=== PATIENT | female | born 1995 | race Caucasian/White ===

== ENCOUNTER → 2023-01-31 13:07 | Outpatient (BNVA) | payer MEDICAID, SELFPAY | PROVIDERS: Visit Provider Physician Assistant ==

== ENCOUNTER 2025-01-06 14:26 | Outpatient (AMB) | payer OTHER, SELFPAY ==
[2025-01-06 14:28] VITALS: BP 118/60; PULSE 67; BMI 41.5
--- NOTE | 2025-01-06 14:28 | A.OFFVIS_ITS ---
Vital Signs 01/06/25 14:28 Height 5 ft 2 in Weight 227 lb 1.218 oz BMI 41.5 BP 118/60 Blood Pressure Location Lt brachial Position Sitting Pulse 67 Pulse Source Pulse Oximeter Intake Visit Reasons: Obesity Intake Note: Patient present today for Obesity. Spool Sorter Required: No Accompanied by: Self / Same As Patient Allergies acetaminophen [From Vicodin] Allergy (Mild, Verified 01/06/25 14:35) Seizure aripiprazole [From Abilify] Allergy (Mild, Verified 01/06/25 14:35) Fainting hydrocodone [From Vicodin] Allergy (Mild, Verified 01/06/25 14:35) Seizure methenamine Allergy (Mild, Verified 01/06/25 14:35) Hives oxycodone Allergy (Mild, Verified 01/06/25 14:35) Seizure Medication List - Last Reconciled 01/06/25 by Major Clay MD docusate sodium 50 mg PO DAILY hydromorphone (Dilaudid) 2 mg PO Q4-6H PRN magnesium 200 mg PO DAILY sennosides (senna) 8.6 mg PO DAILY HPI Comments Details: History of Present Illness The patient is a 29-year-old female presenting for an evaluation of obesity. She describes substantial weight gain several years prior. The patient has adhered to various diets, including the ketogenic diet, and consulted with a cash management associate. Although she initially lost weight, she has been unable to progress further over the last year and a half. Hypothyroidism was identified by her primary care provider, with Rickie's Thyroiditis as the underlying cause. Previously, she was on levothyroxine but discontinued it, which contributed to her current hypothyroid state. Occasionally, the patient snores but hasn't undergone evaluation for sleep apnea and denies Deanna?s syndrome symptoms. She also recently underwent surgery for cauda equina syndrome and has been relatively inactive Review of Systems - Sleep: Reports occasional snoring Physical Exam - Thyroid- Slightly enlarged, approximately 25 grams, smooth consistency, no nodules noted Results Plan The patient will begin treatment for hypothyroidism with levothyroxine 137 mcg daily. Thyroid function will be reevaluated through TSH and free T4 levels in six weeks. For obesity management, referral to a cash management associate is planned. The potential use of GLP-1 or GLP-1/GIP agonists is reserved for future consideration, contingent upon her response to current management strategies. Patient was informed and verbally consented to the use of an ambient scribe for clinic note documentation during this visit. Discussion Notes During the visit, I discussed with the patient her diagnosis of hypothyroidism and its connection to Rickie's Thyroiditis. I explained the role of the thyroid gland, the necessity of levothyroxine therapy, and outlined the timeframe for thyroid function reassessment, advising a follow-up in six weeks to review TSH and free T4 levels. The conversation included a discussion on obesity management. Currently, pharmacological weight loss options remain deferred in favor of continuing dietary consultation and lifestyle adjustments. Should progress stagnate again, I mentioned that GLP-1 or GLP-1/GIP agonists might be alternatives. She will follow-up with Meghana Gordon NP in 2 mos Patient Instructions - Begin taking levothyroxine 137 mcg daily for hypothyroidism. - Set up a follow-up appointment for thyroid function tests (TSH and free T4) in six weeks. - Consult with a cash management associate for continued dietary management. - Monitor weight loss progress and report any changes or concerns. [facility] Medical History (Updated 01/06/25 @ 14:57 by Major Clay MD) Hypothyroidism Obesity delivery delivered Surgical History H/O umbilical hernia repair History of lumbar laminectomy Family History Mother Thyroid ca Father Hyperthyroidism Cerebral palsy Skin cancer Social History Alcohol intake: current Alcohol intake frequency: a few times a month Physical Exam Vital Signs: Last Vital Signs Pulse 67 01/06/25 14:28 BP 118/60 01/06/25 14:28 BMI result Body Mass Index 41.5 Const Other: There were no cushingoid features. thyroid gland is normal size weighs about 15 g. . There are no thyroid nodules palpable Assessment & Plan Assessment & Plan (1) Obesity: Code(s): E66.9 - Obesity, unspecified Category: Medical Plan: see above (2) Hypothyroidism: Code(s): E03.9 - Hypothyroidism, unspecified Category: Medical Plan: see above Orders: Orders Thyroid Stimulating Hormone 6 Weeks E03.9 - Hypothyroidism, unspecified, E66.9 - Obesity, unspecified Free T4 (Free Thyroxine) 6 Weeks E03.9 - Hypothyroidism, unspecified, E66.9 - Obesity, unspecified Referrals Nutrition/Dietitian Referral E66.9 - Obesity, unspecified Medications: New levothyroxine 137 mcg PO DAILY 30 tabs 5RF Coding Level of Care Code New Pt Level 4 (75141) Diagnoses Obesity E66.9 Hypothyroidism E03.9
--- OUTSIDE RECORDS SUMMARY | 2025-01-06 17:50 | XMS_ITS | Data Portability ---
Author Organization [place] - [facility], [facility] Address [address] [place] [address] Care Team Providers Care Marketing Operations Intern Name Role Phone JOS RAYO Primary Care Provider Assessment Encounter Date Assessment Date Assessment LastModified by Organization Details LastModified Time 09/30/2015 09/30/2015 ? ? ?Reviewed causative agents, symptomatic relief reviewed, check vaginal AFFIRM, tx accordingly Check urine C&S, gen probe ? ? ?Rx for Mycolog II cream ERXed Delines other STD screen, and contraception: not sexually active tmachon Not available 09/30/2015 10:26:53 Plan of Treatment Reminders Order Date Submit Date Provider Last Modified By Organization Details Last Modified Time Details Appointments None recorded. Lab culture, urine 2014 015 CHRISTY Not available 5 13:26:13 urinalysis, complete 2014 015 CHRISTY Not available 5 13:26:13 bacterial vaginosis + vaginitis panel, vaginal 2014 015 CHRISTY In-Office Order, Internal Use Only DO Not Attach Compendium DO Not Attach Compendium, Do Not Delete/merge, [id number] 5 15:03:26 CT + NG DNA, PCR, unspecified specimen 2014 015 CHRISTY Not available 5 13:26:14 test, urine 2014 015 robson Mehta In-Office Order, Internal Use Only DO Not Attach Compendium DO Not Attach Compendium, Do Not Delete/merge, [id number] 5 16:37:24 bacterial vaginosis + vaginitis panel, vaginal 2014 015 CHRISTY Not available 22:41:29 Referral None recorded. Procedures None recorded. Surgeries None recorded. Imaging None recorded. Medication Orders nystatin-tr iamcinolone 100,000 unit/g-0.1 % topical cream 2014 015 cbinette [facility] - [address] [place] [address], [id number], 5 11:53:45 Depo-Button Riveter a 150 mg/mL intramuscul ar syringe 2014 015 cbinette Not available 5 10:07:11 Depo-Button Riveter a 150 mg/mL intramuscul ar syringe 2014 015 cbinette [facility] - [address] [place] [address], [id number], 5 10:07:11 Patient TargetsNo targets recorded. Patient Instructions Encounter Date Encounter Id Patient Instructions Last Modified By Organization Details Last Modified Time 04/15/2015 [id number] trichomoniasis: care instructions [id number] Not available 06/03/2015 04:27:47 Reason for Referral None Reported. Results Created Date Observation Date Name Description Value Unit Range Abnormal Flag Note LastModifiedBy Organization Detail LastModifiedTime 04/29/20 15 04/29/2015 pregn jean test, urine Result negati ve Not Available In-Office Order Internal Use Only DO Not Attach Compendium DO Not Attach Compendium, Do Not Delete/merge, [id number] 04/29/2015 13:27:34 04/15/20 15 04/17/2015 bacte rial vagin osis + vagin itis panel , vagin al trichomonas vaginalis DNA Negati ve negati ve Not Available [facility] [address], [place], [address], 04/17/2015 22:41:29 04/15/20 15 04/17/2015 bacte rial vagin osis + vagin itis panel , vagin al gardnerella vaginalis DNA Negati ve negati ve Not Available [facility] [address] [place], [address], 04/17/2015 22:41:29 04/15/20 15 04/17/2015 bacte rial vagin osis + vagin itis panel , vagin al makenna species DNA Negati ve negati ve Not Available [facility] [address] [place] [address], [id number], 04/17/2015 22:41:29 09/29/20 15 09/30/2015 beta- HCG, quant itati ve, serum or plasm a beta-HCG, quantitative <1 mIU/m L <5 Not Available [facility] [address] [place] [address], [id number], 09/30/2015 04:06:10 09/30/20 15 10/01/2015 urina lysis , compl ete color Yellow Not Available [facility] [address] [place] [address], [id number], 10/03/2015 13:26:12 09/30/20 15 10/01/2015 urina lysis , compl ete clarity Slight ly cloudy Not Available [facility] [address] [place] [address], [id number], 10/03/2015 13:26:12 09/30/20 15 10/01/2015 urina lysis , compl ete specific gravity 1.020 1.003- 1.030 Not Available [facility] [address] [place] [address], [id number], 10/03/2015 13:26:12 09/30/20 15 10/01/2015 urina lysis , compl ete pH 7.0 5.0-8. 0 Not Available [facility] [address] [place] [address], [id number], 10/03/2015 13:26:12 09/30/20 15 10/01/2015 urina lysis , compl ete leukocyte esterase Negati ve negati ve Not Available [facility] [address] [place], [address], 10/03/2015 13:26:12 09/30/20 15 10/01/2015 urina lysis , compl ete nitrite Negati ve negati ve Not Available [facility] [address] [place], [address], 10/03/2015 13:26:12 09/30/20 15 10/01/2015 urina lysis , compl ete protein Negati ve negati ve Not Available [facility] [address] [place], [address], 10/03/2015 13:26:12 09/30/20 15 10/01/2015 urina lysis , compl ete glucose 0 mg/dL 0-99 Not Available [facility] [address] [place], [address], 10/03/2015 13:26:12 09/30/20 15 10/01/2015 urina lysis , compl ete ketone Negati ve negati ve Not Available [facility] [address] [place], [address], 10/03/2015 13:26:12 09/30/20 15 10/01/2015 urina lysis , compl ete urobilinogen <2.0 mg/dL <2.0 Not Available [facility] [address] [place], [address], 10/03/2015 13:26:12 09/30/20 15 10/01/2015 urina lysis , compl ete bilirubin Negati ve negati ve Not Available [facility] [address] [place], [address], 10/03/2015 13:26:12 09/30/20 15 10/01/2015 urina lysis , compl ete hemoglobin Negati ve negati ve Not Available [facility] [address] [place], [address], 10/03/2015 13:26:12 09/30/20 15 10/01/2015 urina lysis , compl ete WBC 0 per_h pf 0-4 Not Available [facility] [address] [place], [address], 10/03/2015 13:26:12 09/30/20 15 10/01/2015 urina lysis , compl ete RBC 0 per_h pf 0-4 Not Available [facility] [address] [place] [address], [address], 10/03/2015 13:26:12 09/30/20 15 10/01/2015 urina lysis , compl ete amorphous crystals Presen t Not Available [facility] [address] [place], [address], 10/03/2015 13:26:12 09/30/20 15 10/02/2015 cultu re, urine source Clean catch Not Available [facility] [address] [place], [address], 10/03/2015 13:26:13 09/30/20 15 10/02/2015 cultu re, urine culture Steri le or less than 1000 col/m L. Not Available [facility] [address] [place] [address], [id number], 10/03/2015 13:26:13 09/30/20 15 10/02/2015 cultu re, urine status FINAL 10/02 Not Available [facility] [address] [place], [address], 10/03/2015 13:26:13 09/30/20 15 10/03/2015 CT + NG DNA, PCR, unspe cifie d speci men source urine Not Available [facility] [address] [place], [address], 10/03/2015 13:26:14 09/30/20 15 10/03/2015 CT + NG DNA, PCR, unspe cifie d speci men chlamydia by DNA Negati ve negati ve Not Available [facility] [address], [place], [address], 10/03/2015 13:26:14 09/30/20 15 10/03/2015 CT + NG DNA, PCR, unspe cifie d speci men GC by DNA Negati ve negati ve Not FDA appro cami for GC/Ch lamyd ia in SureP ath, recta l and throa t speci mens. Test valid ated by [facility] for detec ting GC/Ch lamyd ia from these [facility] es. Not Available [facility] [address], [place], [address], 10/03/2015 13:26:14 09/30/20 15 09/30/2015 bacte rial vagin osis + vagin itis panel , vagin al Results Positi ve Not Available In-Office Order Internal Use Only DO Not Attach Compendium DO Not Attach Compendium, Do Not Delete/merge, [id number] 09/30/2015 11:52:47 Result Notes None recorded. Problems Name Problem SNOMED Code Status Onset Date Resolution Date Notes Provider Name and Address Organization Details Recorded Time Hypothyroid ism 59929298 Completed 201106/20/2015 Damaris Shafer null, [facility] 5 14:33:51 Anemia 856878275 Completed 201106/20/2015 Damaris Medelme null, [facility] 5 14:33:51 Anxiety 04613015 Completed 06/20/2015 Damaris Bersadiame null, [facility] 5 14:33:51 Hypercholes terolemia 22274993 Completed 06/20/2015 Damaris Bersadiame null, [facility] 5 14:33:51 Migraine with aura 6008886 Completed 201406/20/2015 Damaris Medelme null, [facility] 5 14:33:51 Bradycardia 63638847 Completed 201206/20/2015 Damaris Shafer [facility], [facility] 5 14:33:51 Depressive disorder 98706880 Completed 201106/20/2015 Damaris Shafer [facility] 5 14:33:51 Infection by Trichomonas 83271820 Completed 06/20/2015 Damarisblaze Shafer [facility] 5 14:33:51 Pure hypercholes terolemia 282514968 Completed 201106/20/2015 Damariscortez Shafer [facility] 5 14:33:51 Anxiety state 561054304 Completed 201106/20/2015 Damariscortez Shafer [facility] 5 14:33:51 Amenorrhea 19871766 Active Leigh Meyers [facility] 5 09:33:55 Vaginitis and vulvovagini tis Active Ana María Gutierrez [facility] 5 11:53:45 Urinary tract infectious disease 53557342 Active Ana María Gutierrez [facility] 5 11:53:45 Problem Notes None recorded. Procedures Surgical History Date Name Laterality Status Provider Name and Address Organization Details Recorded Time 5 Date of Last Pap Smear completed Jos Casillas [facility] 06/07/2015 12:20:28 Imaging Results None recorded. Procedure Notes None recorded. Medical Equipment None Reported. Allergies Allergen ID Allergen Name Allergen Category Reaction Reaction Severity Criticality Documentation Date Start Date Code Code System Note Provider Name and Address Organization Details Recorded Time 042353 acetamino phen medicatio n Not available Not available Not available 04/13/[address] [facility], [facility] 5 11:28:01 163319 oxycodone medicatio n Not available Not available Not available 04/13/2015 7804 RxNorm Damaris Shafer null, [facility] 5 13:24:00 471302 hydrocodo ne Not available Not available Not available Not available 04/13/2015 5489 RxNorm Damaris urbano, [facility] 5 13:24:00 370878 hydrocodo ne bitartrat e medicatio n Not available Not available Not available 04/19/20152012 44886 9 RxNorm COMME NT: CAUSA TIVE AGENT : VICOD IN; Not Available Formerly [facility], [facility]–1983 5 09:47:23 233552 oxycodone hydrochlo ride medicatio n Not available Not available Not available 04/19/20152011 71476 RxNorm COMME NT: CAUSA TIVE AGENT : PERCO CET; Not Available [facility], [facility] 5 09:47:23 839199 acetamino phen medicatio n Not available Not available Not available 04/19/20152011 161 RxNorm COMME NT: CAUSA TIVE AGENT : PERCO CET; Not Available [facility], [facility] 5 09:47:23 Medications Name Sig Start Date Stop Date Status Note LastModified by Organization Details LastModified Time multivita min tablet TAKE 1 TABLET BY ORAL ROUTE EVERY DAY WITH FOOD 03/10 completed Not Available Not Available Not Available Cleocin 100 mg vaginal supposito ry Insert 1 supposit ory every day by vaginal route for 3 days. 2014 active Not Available Not Available Not Avai lable Vitamins B Complex capsule 11/12 completed PRESCRIB ED ELSEWHER E Not Available Not Available Not Available Microgest in FE 11/30 (28) 1 mg-20 mcg (21)/75 mg (7) tablet TAKE 1 TABLET BY ORAL ROUTE EVERY DAY 07/30 completed Not Available Not Available Not Available Flagyl 500 mg tablet TAKE 1 TABLET BY ORAL ROUTE EVERY 12 HOURS FOR 7 DAYS 03/21 completed Not Available Not Available Not Available Micronor (28) 0.35 mg tablet TAKE 1 TABLET BY ORAL ROUTE EVERY DAY 03/10 completed COMMENTS : GENERIC Not Available Not Available Not Available nystatin- triamcino lone 100,000 unit/g-0. 1 % topical cream APPLY TO THE AFFECTED AREA(S) BY TOPICAL ROUTE 2 TIMES PER DAY IN THEMORNI NG AND EVENING 2014 active Not Available Not Available Not Avai lable Tylenol 325 mg tablet TAKE 1 TABLET BY ORAL ROUTE EVERY 4 HOURS NEEDED 03/10 completed Not Available Not Available Not Available Prozac 10 mg capsule TAKE 2 CAPSULE BY ORAL ROUTE EVERY DAY 03/10 completed PRESCRIB ED ELSEWHER E Not Available Not Available Not Available Topamax 15 mg sprinkle capsule TAKE 1 CAPSULE BY ORAL ROUTE 2 TIMES EVERY DAY IN THE MORNING AND EVENING 03/10 completed PRESCRIB ED ELSEWHER E Not Available Not Available Not Available Depo-Prov era 150 mg/mL intramusc ular syringe Inject 1 mL every 3 months by intramus cular route. 2014 active Not Available Not Available Not Avai lable iron ER 325 mg (65 mg iron) capsule,e xtended release APPLY BY DENTAL ROUTE 03/10 completed PRESCRIB ED ELSEWHER E Not Available Not Available Not Available Vitamin D3 25 mcg (1,000 unit) capsule TAKE BY ORAL ROUTE 03/10 completed PRESCRIB ED ELSEWHER E Not Available Not Available Not Available Prozac active Not Available Not Availa ble Not Available Tylenol active Not Available Not Avail able Not Available Vitamin D3 active Not Available Not Available Not Available Zyrtec active Not Available Not Availa ble Not Available Topamax active Not Available Not Avail able Not Available multivita min active Not Available Not Available Not Available Ortho Micronor active Not Available Not Available Not Available Zantac 50 mg/2 mL (25 mg/mL) injection solution INFUSE BY INTRAVEN OUS ROUTE EVERY 8 HOURS OVER 03/10 completed PRESCRIB ED ELSEWHER E Not Available Not Available Not Available Zyrtec 10 mg capsule 03/10 completed PRESCRIB ED ELSEWHER E Not Available Not Available Not Available Sleep Caps 2.5 mg-252.5 mg capsule 09/16 completed PRESCRIB ED ELSEWHER E Not Available Not Available Not Available Vitals Date Recorded Body weight Systolic blood pressure Diastolic blood pressure Provider Name and Address Organization Details Last Updated DateTime 04/29/2015 338609.353 54 g 100 mm[Hg] 60 mm[Hg] Ana María Gutierrez [facility] 04/29/2015 13:19:46 Date Recorded Body weight Systolic blood pressure Diastolic blood pressure Provider Name and Address Organization Details Last Updated DateTime 09/30/2015 473124.837 47 g 114 mm[Hg] 68 mm[Hg] Ana María Gutierrez [facility] 09/30/2015 10:06:53 Date Recorded Body height Body mass index (BMI) Body weight Systolic blood pressure Diastolic blood pressure Provider Name and Address Organization Details Last Updated DateTime 04/15/2015 160.02 cm 42.9 kg/m2 725547.3 5354 g 110 mm[Hg] 74 mm[Hg] Jos Casillas [facility] 5 11:25:34 Social History Question Answer Notes LastModified by Organizat ion Details LastModified Time Tobacco Smoking Status Former Smoker Quit 2 months ago Jos Hanksham [facility], [facility] 04/15/2015 11:29:00 How Much Tobacco Do You Smoke? No cbinette Information not available 09/30/2015 How Many Years Have You Smoked Tobacco? 0 Information not available 04/13/2015 Sex: Unknown Functional Status Question Answer Note LastModified by Organization D etails LastModified Time What is your exercise level? Heavy DAILY Information not available 04/13/2015 Mental Status None recorded. Family History Relationship Description Onset Age of this Age Resolved Age Notes LastModified by Organization Details LastModified Time Brother Cerebrovascu lar accident cbinette Not available 10:08:24 Father Hypertensive disorder Hypoth yroid, DM cbinette Not available 09/30/2015 10:08:24 Maternal Grandfather Malignant tumor of esophagus MGGF cbinette Not available 2014 10:08:24 Maternal Grandmother Malignant tumor of breast MGGM cbinette Not available 2014 10:08:24 Mother Irritable bowel syndrome HTN, bicorn uate uterus cbinette Not available 09/30/2015 10:08:24 Notes:CAD in both sides of f amily Medical History Condition Response Other N Breast Cancer N Blood clots N Benign breast disease N Colon cancer N Lung Disease N Depression N Defects or Inherited Disease N Anesthesia Complications N Headaches/Migraines N Anxiety Disorder N Arthritis N HSV N Infertility N Interstitial Cystitis N Acid Reflux (GERD) N Cancer N Stroke N Endometriosis N Fibromyalgia N Spina Bifida N HIV N Heart Problems N Sexual Dysfunction N Autoimmune disorder N Kidney or Bladder Problems N Thyroid Problems N GI Problems N Eating Disorder N Anemia N Multiple Sclerosis N Psychiatric Illness N Ovarian Cancer N Diabetes N Blood Transfusions N Bladder disease N Abnormal Uterine Bleeding N Hyperlipidemia N BrCa positive N Diverticulitis N Abuse/Domestic Violence N Asthma N Hepatitis N Hypertension N Osteoporosis N Thrombophilias N Gynecological History Statement/Question Response Have you ever used control pills? Y Date of Last Pap Smear 03/10/2015 Current Control Method None What type of control pills? Angela Sexually Active? N Obstetrics History GPAL:G 0 P 0 0 0 0 Past Encounters Encounter ID Performer Location Encounter Start Date Encounter Closed Date Diagnosis/Indication Diagnosis SNOMED-CT Code Diagnosis ICD10 Code Diagnosis Note [id number] [facility] [address] [place] [address] 04/15/2015 11:13:05 04/18/2015 09:17:09 Venereal disease screening 754865220 KIZZY done today for trichomona s. Reviewed safe sex practices. Infection by Trichomonas 12635681 see above Contracept ion care management 236050015 Patient counseled at time of annual regarding contracept ion options, wishes to restart DMPA. Risks vs benefits and side effects reviewed. Advised to supplement with calcium. One year erxd to pharmacy. Patient to call for injection with menses. [id number] [facility] [address] [place] [address] 11/12/2012 00:00:00 [id number] [facility] [address] [place] [address] 02/04/2013 00:00:00 [id number] [id number] [address] [place] [address] 05/05/2013 00:00:00 [id number] [facility] [address] [place] [address] 09/16/2013 00:00:00 [id number] [facility] [address] [place] [address] 03/10/2015 00:00:00 [id number] [facility] [address] [place] [address] 04/29/2015 13:04:43 05/02/2015 13:18:01 Family planning surveillance [id number] Cesia Shafer [address] [facility] [place] [address] 06/24/2015 11:12:18 06/24/2015 11:16:52 [id number] SCOTT WEEMS MD [facility] [address] [place] [address] 09/30/2015 10:00:47 10/03/2015 09:27:28 Vaginitis and vulvovaginitis 084783419 N76.0 Urinary tr act infectious disease 06062157 N39.0 Health Concerns Section Related Observation LastModified by Organization Detai ls LastModified Time None Recorded Concern Status LastModified by Organization Details LastModified Time None Recorded Advance Directives Directive None Recorded Payers Encounter Date Sequence Insurance Name Policy Number Policy Melton Covered Member ID Melton Member ID Guarantor Name 04/15/2015 1 [employer]: [employer] WORK[employer] WELFARE FUND - PERSONAL CHOICE (PPO) [id number] 04/29/2015 1 [employer]: [employer] - [employer] WELF[employer] FUND - PERSONAL CHOICE (PPO) [id number] [id number] [facility] 06/24/2015 1 [employer]: [employer] - [employer] WELF[employer] FUND - PERSONAL CHOICE (PPO) [id number] [id number] [facility] 09/30/2015 1 [employer]: [employer] - [employer] WELF[employer] FUND - PERSONAL CHOICE (PPO) [id number] [id number] [facility] OBGyn Episode No OBEpisode recorded.
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
--- OUTSIDE RECORDS SUMMARY | 2025-01-06 17:50 | XMS_ITS | Data Portability ---
Author Organization [facility], [facility] (Prof.) Address [address], [address] [place] [address] Assessment No assessment recorded. Plan of Treatment Reminders Order Date Submit Date Provider Last Modified By Organization Details Last Modified Time Details Appointments None record ed. Lab None record ed. Referral None record ed. Procedures None record ed. Surgeries None record ed. Imaging None record ed. Medication Orders None record ed. Patient TargetsNo targets recorded. Patient InstructionsNo instructions recorded. Reason for Referral None Reported. Medical Equipment None Reported. Medications Name Sig Start Date Stop Date Status Note LastModified by Organization Details LastModified Time ondansetron HCl 4 mg tablet active Not Available Not Available Not Available acetaminophen 300 mg-codeine 30 mg tablet active Not Available Not Available Not Available terconazole 80 mg vaginal suppository active Not Available Not Available Not Available amoxicillin 875 mg tablet active Not Available Not Available No t Available metoclopramide 5 mg tablet active Not Available Not Available No t Available ranitidine 150 mg tablet active Not Available Not Available No t Available clotrimazole-bet amethasone 1 %-0.05 % topical cream active Not Available Not Available Not Available Vitals None Recorded Social History None recorded. Functional Status None recorded. Mental Status None recorded. Family History Nothing Reported. Medical History No medical history recorded. Gynecological HistoryNo gynecological history recorded. Obstetrics History GPAL:G 0 P 0 0 0 0 Past Encounters Encounter ID Performer Location Encounter Start Date Encounter Closed Date Diagnosis/Indication Diagnosis SNOMED-CT Code Diagnosis ICD10 Code Diagnosis Note [id number] [place] [address] 11/27/2017 14:25:52 11/27/2017 14:26:06 Health Concerns Section Related Observation LastModified by Organization Detai ls LastModified Time None Recorded Concern Status LastModified by Organization Details LastModified Time None Recorded Advance Directives Directive None Recorded Payers Encounter Date Sequence Insurance Name Policy Number Policy Melton Covered Member ID Melton Member ID Guarantor Name 11/27/2017 1 [facility] PLAN (MEDICAID HMO) [id number] Shirley Roldan [id number] Shirley Roldan OBGyn Episode No OBEpisode recorded.
--- OUTSIDE RECORDS SUMMARY | 2025-01-06 17:50 | XMS_ITS | Clinical Summary ---
Author Organization [facility] '[facility] Address [address] [place] [id number] Care Team Providers Care Product Safety Associate Name Role Phone Unavailable Primary Care Provider Unavailabl e Source Comments Please note that some or all of the patient's information could have additional privacy protections. State laws allow health care providers to render certain types of treatment to minors without parental consent. Please do not assume that this information can be shared solely by obtaining just the consent of the patient's parent/guardian. Please determine if all or part of the patient's care was rendered without parent/guardian involvement. And, if so, obtain the minor's consent prior to disclosure.[facility] Social History Tobacco Use Types Packs/Day Years Used Date Smoking Tobacco: Never Assessed Comments Unknown Sex and Gender Information Value Date Recorded Sex Assigned at Not on file Legal Sex Female 2:22 AM EST Gender Identity Not on file Sexual Orientation Not on file Plan of Treatment Not on file
--- OUTSIDE RECORDS SUMMARY | 2025-01-06 17:50 | XMS_ITS | Clinical Summary ---
Author Organization [facility] [facility] [employer] Address [address] [place] [address] Care Team Providers Care Cook Boat Name Role Phone Unavailable Primary Care Provider Unavailabl e Allergies Active Allergy Reactions Criticality Noted Date Comments Oxycodone-Acetaminophen 08/20/2023 Medications No known medications Social History Tobacco Use Types Packs/Day Years Used Date Smoking Tobacco: Never Assessed Tobacco Cessation:Counseling Given: Not Answered Comments Unknown Sex and Gender Information Value Date Recorded Sex Assigned at Female 08/20/2023 10:42 AM EDT Legal Sex Female 10:34 AM EDT Gender Identity Female 08/20/2023 10:42 AM EDT Sexual Orientation Choose not to disclose 2022 10:42 AM EDT Plan of Treatment Health Maintenance Due Date Last Done Comments Dental Oral Exam 1993 Dental Prophylaxis 1993 Dental X-Ray: Bitewings 1993 Dental X-Ray: Full Mouth 1993 Depression Screening 1993 HIV Screening 1993 SDOH Screening 1993 Alcohol/Substance Use Screening 2005 Tobacco Screening 2005 Family Planning (PISQ) 2008 Hepatitis C Screening 2011 Hepatitis B Vaccines (1 of 3 - 19+ 3-dose series) 2012 Pap Smear 2014 Cervical Cancer Screening 2023 HPV/Cotest 2023 COVID-19 Vaccine (4 - 2023-2 5 season) 2024 01/03/2022, 07/18/2021, 06/21/2021 Influenza Vaccine (#1) 2024 08/20/2019 DTaP/Tdap/Td Vaccines (2 - T d or Tdap) 11/06/2027 11/06/2017 Zoster Vaccines (1 of 2) 2043 RSV Patients and Patients Aged 60 years or older (1 - 1-dose 75+ series) 2068 HIB Vaccines Aged Out No longer eligi ble based on patient's age to complete this topic HPV Vaccines Aged Out No longer eligi ble based on patient's age to complete this topic Hepatitis A Vaccines Aged Out No long er eligible based on patient's age to complete this topic IPV Vaccines Aged Out No longer eligi ble based on patient's age to complete this topic Meningococcal Vaccine Aged Out No amelie billy eligible based on patient's age to complete this topic Pneumococcal Vaccine: Pediatrics (0 to 5 Years) and At-Risk Patients (6 to 49) Years) Aged Out No longer eligible b ased on patient's age to complete this topic RSV under 20 months Aged Out No longe r eligible based on patient's age to complete this topic Rotavirus Vaccines Aged Out No longer eligible based on patient's age to complete this topic Insurance [facility] MEDICAID STAND ADULT
--- OUTSIDE RECORDS SUMMARY | 2025-01-06 17:50 | XMS_ITS | Clinical Summary ---
Author Organization [address] [facility] Address [address] [place] [address] Phone Care Team Providers Care Seam Rubbing Machine Operator Name Role Phone Darrin Nelson MD Primary Care Provider [phone] Allergies Active Allergy Reactions Criticality Noted Date Comments Acetaminophen Unknown 04/10/2012 acetaminophen Aripiprazole 02/01/2017 Passed out and had a seizure Hydrocodone Unknown 09/16/2013 hydrocodone bitartrate Hydrocodone-Acetaminophen 02/01/2017 Passed out and had a seizure Methenamine Hives Low 09/16/2024 Oxycodone Unknown High 04/10/2012 oxycodone hydrochloride Oxycodone-Acetaminophen Other 02/01/2017 Passed out and had a seizure Tramadol 06/26/2024 Medications NIFEdipine, bulk, powder Place 1 Units around the anus 3 times daily for 56 days. Nifedipine 0.2% ointment. Apply a pea-size amount to the anal verge TID for 8 weeks. 4 Active senna (SENOKOT) 8.6 mg tablet Take by mouth. A ctive acetaminophen (TYLENOL) 500 mg tablet Take 1 tablet (500 mg total) by mouth every 6 (six) hours if needed. Active tamsulosin (FLOMAX) 0.4 mg 24 hr capsule Take 1 Capsule by mouth daily. Take 30 mins after same meal every day. Active senna-docusate (PERICOLACE) 8.6-50 mg per tablet Take 1 tablet by mouth 1 (one) time each day. 30 each 11 5 01/16/20 26 Active docusate sodium (COLACE) 100 mg capsule Take 1 capsule (100 mg total) by mouth. 4 Active multivitamin with minerals tablet Take 1 tablet by mouth 1 (one) time each day. Active cranberry fruit (cranberry) 450 mg tablet Take by mouth. Activ e lactobacillus acidoph-l.bulga r 100 million cell granules in packet Take 1 packet by mouth. 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 Overview (09/17/2024): 05/31 - pt reports hx of this - 04/23/17 TSH 0.55 - Plan for repeat TSH with 28wk labs Lab test positive for detection of COVID-19 viru s 11/24/2020 Overview (09/17/2024): Had covid pos last yr, cleared by cdc to return to work Marijuana use 10/14/2017 Overview (09/17/2024): Positive 10/09/17 Encounters Date Type Department Care Team Description 01/04/2025 11:30 AM EST Office Visit General Surgery - [address] [place] [id number] Ed Yadav MD Anal fissure (Primary Dx) 12/17/2024 Telephone Internal Medicine - [address] [place] [address] Chino Wallace MA Results 11/26/2024 11:15 AM EST Office Visit Internal Medicine - [address] [place] [address] Darrin Nelson MD Adult general medical examination (Primary Dx); Obesity with body mass index (BMI) in 95th percentile to less than 120% of 95th percentile for age in pediatric patient, unspecified obesity type, unspecified whether serious comorbidity present; Chronic idiopathic constipation; Rickie's disease from Last 3 Months Immunizations Name Administration Dates Next Due Influenza Quadravalent, MDCK , 0.5ml, preservative free (Flucelvax) 6mo and older 08/28/2017 Tdap Tetanus diptheria acell ular pertussis (Boostrix; Adacel) 7yo and older 11/06/2017 Surgical History Surgery Date Site/Laterality Comments HERNIA REPAIR PROCEDURE: HISTORICAL HERNIA REPAIR/ING; COMMENT: age 16 WRIST SURGERY Left PROCEDURE: HISTORICAL WRIST SURGERY; COMMENT: age 11 Medical History Medical History Date Comments Depression DX:Depression Anemia DX:Anemia Rickie's disease DX:Rickie 's disease; COMMENT: pt reports hx of this Family History Medical History Relation Name Comments Diabetes Father Breast cancer Neg Hx Cancer of Small Bowel Neg Hx Colon cancer Neg Hx Kidney cancer Neg Hx Ovarian cancer Neg Hx Pancreatic cancer Neg Hx Uterine cancer Neg Hx Relation Name Status Comments Brother Alive Father Alive Maternal Grandfather Maternal Grandmother Alive Mother Alive Paternal Grandfather Paternal Grandmother Social History Tobacco Use Types Packs/Day Years Used Date Smoking Tobacco: Every Day Smokeless Tobacco: Never Alcohol Use Standard Drinks/Week Comments Yes 0 (1 standard drink = 0.6 oz pur e alcohol) Comments Unknown Sex and Gender Information Value Date Recorded Sex Assigned at Not on file Legal Sex Female 6:57 PM EST Gender Identity Not on file Sexual Orientation Not on file Obstetrics History Last Filed Vital Signs Vital Sign Reading Time Taken Comments Blood Pressure 110/70 01/04/2025 11:41 AM EST Pulse 73 01/04/2025 11:41 AM EST Temperature 37 ??C (98.6 ??F) 11/26/2024 11:20 AM EST Respiratory Rate - - Oxygen Saturation 99% 11/26/2024 11:20 AM EST Inhaled Oxygen Concentration - - Weight 102 kg (224 lb 6.4 oz) 01/04/2025 11:41 A M EST Height 157.5 cm (5' 2 ) 01/04/2025 11:41 AM EST Body Mass Index 41.04 01/04/2025 11:41 AM EST Plan of Treatment Health Maintenance Due Date Last Done Comments Hepatitis B Vaccines (1 of 3 - 19+ 3-dose series) 2012 Pneumococcal Vaccine: Pediatrics (0 to 5 Years) and At-Risk Patients (6 to 64 Years) (1 of 2 - PCV) 2012 Depression Screening 10/20/2022 Social Influencers of Health Screening 10/20/2022 COVID-19 Vaccine (2023-2 5 season) 2024 01/03/2022, 07/18/2021, 06/21/2021 Influenza Vaccine (#1) 2024 9, 08/28/2017 DTaP,Tdap,and Td Vaccines (2 - Td or Tdap) 11/06/2027 11/06/2017 Cervical Cancer Screening: HPV 12/06/2028 12/06/2023 Cholesterol Screening (Lipid Panel) 12/15/2029 12/15/2024 HIV Screening Completed 02/28/2024 Hepatitis C Screening Completed 02/28/2024 HIB Vaccines Aged Out No longer eligi [...] on patient's age to complete this topic MMR Vaccines Aged Out No longer eligi ble based on patient's age to complete this topic Meningococcal ACWY Vaccine Aged Out N o longer eligible based on patient's age to complete this topic Meningococcal B Vacine Aged Out No lo nger eligible based on patient's age to complete this topic RSV Immunization Patients Under 20 months Aged Out No longer eligible b ased on patient's age to complete this topic Varicella Vaccines Aged Out No longer eligible based on patient's age to complete this topic Procedures Procedure Name Priority Date/Time Associated Diagnosis Comments CBC WITH AUTO DIFFERENTIAL Routine 12/15/2024 10:10 AM EST Acute cystitis without hematuria Hives THYROID STIMULATING HORMONE Routine 12/15/2024 10:10 AM EST Acute cystitis without hematuria Hives LIPID PANEL WITH REFLEX TO DIRECT LDL Routine 12/15/2024 10:10 AM EST Acute cystitis without hematuria Hives COMPREHENSIVE METABOLIC PANEL Routine 12/15/2024 10:10 AM EST Acute cystitis without hematuria Hives CBC AND DIFFERENTIAL Routine 12/15/2024 10:10 AM EST Acute cystitis without hematuria Hives HM HEPATITIS C SCREENING Routine 02/28/2024 HIV SCREENING Routine 02/28/2024 HPV Routine 12/06/2023 from Last 3 Months or Most Recently Relevant to Health Maintenance Results * (ABNORMAL) Lipid panel with reflex to direct LDL (12/15/2024 10:10 AM EST) Cholesterol 187 0 - 200 mg/dL LAB CHEMISTRY METHOD 12/15/2024 1:20 PM EST [facility] Triglycerides 44 0 - 150 mg/dL LAB CHEMISTRY METHOD 12/15/2024 1:20 PM EST [facility] HDL 71 >=40 mg/dL LAB CHEMISTRY METHOD 12/15/2024 1:20 PM EST [facility] LDL Calculated 107(H) 0 - 100 mg/dL LAB CHEMISTRY METHOD 12/15/2024 1:20 PM EST [facility] VLDL Cholesterol Len 8.8 mg/dL LAB CHEMISTRY METHOD 12/15/2024 1:20 PM EST [facility] Non HDL Chol. (LDL+VLDL) 116 <145 mg/dL LAB CHEMISTRY METHOD 12/15/2024 1:20 PM EST [facility] Chol/HDL Ratio 2.6 0.0 - 4.4 LAB CHEMISTRY METHOD 12/15/2024 1:20 PM EST [facility] Blood Venous blood specimen / Unknown Venipuncture / Unknown 12/15/2024 10:10 AM EST 12/15/2024 10:10 AM EST us Darrin Nelson MD LAB BLOOD ORDERABLES Final Resul t [facility] [address] [place] [address], [place] [phone] * CBC auto differential (12/15/2024 10:10 AM EST) WBC 8.3 4.8 - 10.8 K/mcL LAB HEMETOLOGY METHOD 12/15/2024 12:25 PM [facility] RBC 4.10 3.80 - 4.80 M/mcL LAB HEMETOLOGY METHOD 12/15/2024 12:25 PM [facility] Hemoglobin 12.4 11.5 - 16.0 g/dL LAB HEMETOLOGY METHOD 12/15/2024 12:25 PM [facility] Hematocrit 38.0 35.0 - 47.0 % LAB HEMETOLOGY METHOD 12/15/2024 12:25 PM [facility] MCV 92.9 79.0 - 98.0 FL LAB HEMETOLOGY METHOD 12/15/2024 12:25 PM [facility] MCH 30.3 27.0 - 32.0 pcg LAB HEMETOLOGY METHOD 12/15/2024 12:25 PM [facility] MCHC 32.6 32.0 - 37.0 g/dL LAB HEMETOLOGY METHOD 12/15/2024 12:25 PM [facility] RDW 13.2 11.0 - 15.0 % LAB HEMETOLOGY METHOD 12/15/2024 12:25 PM [facility] Platelets 251 130 - 400 K/mcL LAB HEMETOLOGY METHOD 12/15/2024 12:25 PM [facility] MPV 10.6 7.0 - 11.0 FL LAB HEMETOLOGY METHOD 12/15/2024 12:25 PM [facility] NRBC 0.0 <1.0 % LAB HEMETOLOGY METHOD 12/15/2024 12:25 PM [facility] NRBC Absolute 0.00 <0.10 K/mcL LAB HEMETOLOGY METHOD 12/15/2024 12:25 PM [facility] Neutrophils Relative 72.0 % LAB HEMETOLOGY METHOD 12/15/2024 12:25 PM [facility] Lymphocytes Relative 20.9 % LAB HEMETOLOGY METHOD 12/15/2024 12:25 PM [facility] Monocytes Relative 5.6 % LAB HEMETOLOGY METHOD 12/15/2024 12:25 PM [facility] Eosinophils Relative 0.7 % LAB HEMETOLOGY METHOD 12/15/2024 12:25 PM [facility] Basophils Relative 0.4 % LAB HEMETOLOGY METHOD 12/15/2024 12:25 PM [facility] Immature Granulocytes Relative 0.4 % LAB HEMETOLOGY METHOD 12/15/2024 12:25 PM [facility] Neutrophils Absolute 5.95 1.50 - 7.00 K/mcL LAB HEMETOLOGY METHOD 12/15/2024 12:25 PM [facility] Lymphocytes Absolute 1.73 1.00 - 5.00 K/mcL LAB HEMETOLOGY METHOD 12/15/2024 12:25 PM [facility] Monocytes Absolute 0.46 0.20 - 1.00 K/mcL LAB HEMETOLOGY METHOD 12/15/2024 12:25 PM [facility] Eosinophils Absolute 0.06 0.00 - 0.50 K/mcL LAB HEMETOLOGY METHOD 12/15/2024 12:25 PM [facility] Basophils Absolute 0.03 0.00 - 0.20 K/mcL LAB HEMETOLOGY METHOD 12/15/2024 12:25 PM [facility] Immature Granulocytes Absolute 0.03 0.00 - 0.03 K/mcL LAB HEMETOLOGY METHOD 12/15/2024 12:25 PM [facility] Blood Venous blood specimen / Unknown Venipuncture / Unknown 12/15/2024 10:10 AM EST 12/15/2024 10:10 AM EST Darrin Nelson MD LAB BLOOD ORDERABLES Final Resul t Performing Organization Address City/[facility]/ZIP Co de Phone Number [facility] [address] [place] [address], [place] [phone] * (ABNORMAL) Thyroid stimulating hormone (12/15/2024 10:10 AM EST) TSH 41.29(H) 0.40 - 4.00 mcIU/mL LAB CHEMISTRY METHOD 12/15/2024 1:11 PM [facility] Blood Venous blood specimen / Unknown Venipuncture / Unknown 12/15/2024 10:10 AM EST 12/15/2024 10:10 AM EST Darrin Nelson MD LAB BLOOD ORDERABLES Final Resul t Performing Organization Address [facility]/ZIP Co de Phone Number [facility] [address] [place] [address], [place] [phone] * (ABNORMAL) Comprehensive metabolic panel (12/15/2024 10:10 AM EST) Sodium 139 133 - 145 mmol/L LAB CHEMISTRY METHOD 12/15/2024 1:14 PM [facility] Potassium 4.1 3.5 - 5.5 mmol/L LAB CHEMISTRY METHOD 12/15/2024 1:14 PM [facility] Chloride 107 96 - 110 mmol/L LAB CHEMISTRY METHOD 12/15/2024 1:14 PM [facility] CO2 28 21 - 32 mmol/L LAB CHEMISTRY METHOD 12/15/2024 1:14 PM [facility] Anion Gap 4 3 - 11 LAB CHEMISTRY METHOD 12/15/2024 1:14 PM [facility] Glucose 84 70 - 100 mg/dL LAB CHEMISTRY METHOD 12/15/2024 1:14 PM [facility] BUN 15 5 - 25 mg/dL LAB CHEMISTRY METHOD 12/15/2024 1:14 PM [facility] Creatinine 0.65 0.50 - 1.10 mg/dL LAB CHEMISTRY METHOD 12/15/2024 1:14 PM [facility] eGFR 121 >=60 mL/min/1. 73m2 LAB CHEMISTRY METHOD 12/15/2024 1:14 PM [facility] Comment:Calculation based on the??Chronic Kidney Disease Epidemiology Collaboration (CKD-EPI) equation refit??without adjustment for race. BUN/Creatinine Ratio 23.1 LAB CHEMISTRY METHOD 12/15/2024 1:14 PM [facility] Calcium 8.8 8.5 - 10.5 mg/dL LAB CHEMISTRY METHOD 12/15/2024 1:14 PM [facility] AST (SGOT) 22 10 - 42 unit/L LAB CHEMISTRY METHOD 12/15/2024 1:14 PM [facility] ALT (SGPT) 30 10 - 60 unit/L LAB CHEMISTRY METHOD 12/15/2024 1:14 PM [facility] Alkaline Phosphatase 37(L) 42 - 121 unit/L LAB CHEMISTRY METHOD 12/15/2024 1:14 PM [facility] Total Protein 6.9 6.0 - 8.0 g/dL LAB CHEMISTRY METHOD 12/15/2024 1:14 PM [facility] Albumin 3.9 3.2 - 5.0 g/dL LAB CHEMISTRY METHOD 12/15/2024 1:14 PM [facility] Total Bilirubin 0.4 0.0 - 1.4 mg/dL LAB CHEMISTRY METHOD 12/15/2024 1:14 PM [facility] Blood Venous blood specimen / Unknown Venipuncture / Unknown 12/15/2024 10:10 AM EST 12/15/2024 10:10 AM EST us Darrin Nelson MD LAB BLOOD ORDERABLES Final Resul t [facility] [address] [place] [address], * HIV Screening (02/28/2024) HIV Screening abstracted Historical Provider HEALTH MAINTENANCE Final Result * Hepatitis C Screening (02/28/2024) Hepatitis C Screening abstracted Historical Provider HEALTH MAINTENANCE Final Result * Cervical Cancer Screening: HPV (12/06/2023) Cervical Cancer Screening: HPV negative, abstracted Historical Provider HEALTH MAINTENANCE Final Result from Last 3 Months or Most Recently Relevant to Health Maintenance Insurance [facility] Care Teams Seam Rubbing Machine Operator Relationship Specialty Start Date End Date Darrin Nelson MD [address] [address] PCP - General 05/27/24
--- OUTSIDE RECORDS SUMMARY | 2025-01-06 17:50 | XMS_ITS | Encounter Summary ---
Author Organization [facility] Address [address] [place] [address] Care Team Providers Care Extracorporeal Circulation Specialist Name Role Phone Darrin Nelson MD Primary Care Provider [phone] Reason for Visit * Reason Onset Date Comments Results 12/17/2024 Encounter Details Date Type Department Care Team ([facility] Contact Info) Description 12/17/2024 Telephone Internal Medicine - [place] [address] [facility] [address] [place] [address] Chino Wallace MA Results Social History Tobacco Use Types Packs/Day Years [...] on file documented as of this encounter Progress Notes * Chino Wallace MA - 12/29/2024 11:39 AM EST Pt aware. * hCino Wallace MA - 12/29/2024 11:39 AM EST ----- Message from Jn Nelson MD sent at 12/15/2024 4:29 PM EST ----- Thyroid is on the low side need to follow-up with endocrine referral has been placed other labs arestable for age. * Chino Wallace MA - 12/17/2024 12:16 PM EST Called, sent me directly to . not set up. Unable to lvm. * Chino Wallace MA - 12/17/2024 12:15 PM EST ----- Message from Jn Nelson MD sent at 12/15/2024 4:29 PM EST ----- Thyroid is on the low side need to follow-up with endocrine referral has been placed other labs arestable for age. documented in this encounter Plan of Treatment Not on file documented as of this encounter Visit Diagnoses Not on filedocumented in this encounter Care Teams Extracorporeal Circulation Specialist Relationship Specialty Start Date End Date Darrin Nelson MD [address] [place] [address] [address] [place] [address] PCP - General 05/27/24 documented as of this encounter
== END 2025-01-06 15:05 | disposition home or self-care (01) ==
PROVIDERS: PCP Internal Medicine; Visit Provider Internal Medicine Endocrinology, Diabetes & Metabolism
DX: E66.9 Obesity, unspecified (principal); E03.9 Hypothyroidism, unspecified
CPT/HCPCS: 99204

== ENCOUNTER → 2025-01-06 14:26 | Outpatient (BNVA) | payer OTHER, SELFPAY | PROVIDERS: PCP Internal Medicine; Visit Provider Internal Medicine Endocrinology, Diabetes & Metabolism | DX: E66.9 Obesity, unspecified (principal); Z68.41 Body mass index [BMI] 40.0-44.9, adult; E03.9 Hypothyroidism, unspecified | CPT/HCPCS: 99202 ==

== ENCOUNTER 2025-01-25 13:04 | Outpatient (AMB) | payer OTHER, SELFPAY ==
--- NOTE | 2025-01-25 13:14 | A.OFFVIS_ITS ---
VS Expanded 01/25/25 13:16 Height 5 ft 2 in Weight 223 lb 12.307 oz BMI 40.9 Intake Visit Reasons: obesity Allergies acetaminophen [From Vicodin] Allergy (Mild, Verified 01/06/25 14:35) Seizure aripiprazole [From Abilify] Allergy (Mild, Verified 01/06/25 14:35) Fainting hydrocodone [From Vicodin] Allergy (Mild, Verified 01/06/25 14:35) Seizure methenamine Allergy (Mild, Verified 01/06/25 14:35) Hives oxycodone Allergy (Mild, Verified 01/06/25 14:35) Seizure Nutrition Presentation Details: Pt presents for MNT obesity Pt reports physical activity ahs lessened since May 2023 due to surgery related to cauda equina syndrome Typical meal intake: fruits/d 1/d milk: cheese 1/d, greens: 1/day fish: 1x/wk tries to have preportioned meals and frozen meals , reading food labels water: 16 oz/d takes iron supplement Pt reports weight hx, 400 lbs in 20's (gained 190lb during ) 190 lbs gained with daughter Typical meal intake b: protein shake (espresso shot) hard boiled egg or beef stick or wake up wraps L: tuna sand (divides 1 sand for lunch and snack), water Dinner taco salad/ground beef, water snack on dried meat n/v: denies BS Monitoring Most Recent Diabetes Results: No Data to Display VSO-Qzwkelx-Rl.Jeor Equation Height: 5 ft 2 in Weight: 224 lb Resting Metabolic Rate: 1685.76 Calculated Activity Level: Mild Activity Calories Needed to Maintain Weight: 2317.92 [facility] Medical History (Updated 01/06/25 @ 14:57 by Major Clay MD) Hypothyroidism Obesity delivery delivered Surgical History H/O umbilical hernia repair History of lumbar laminectomy Family History Mother Thyroid ca Father Hyperthyroidism Cerebral palsy Skin cancer Social History Alcohol intake: current Alcohol intake frequency: a few times a month Assessment & Plan Assessment & Plan (1) Obesity: Code(s): E66.9 - Obesity, unspecified Category: Medical Plan: Wt: 102 Kg ( 02/02 ) Est kcal needs as per MSJ: 2000 (40% carb, 30% protein/fat) Est fluid needs as per 25-30 ml/d: 3100 Est prot per day as per 1-1.2 g/kg bw: 122 Recommend fiber intake : 8-10 g per day and gradually increase to 25-28 g per day for women and 35-38 g for men or as tolerated Recommend sodium intake per day : less than 1500 mg less than 2000 mg Educated patient on: ( R = reviewed V = verbalizes understanding N/R = needs review N/A = not applicable * Food sources of carbohydrate, adequate serving sizes and its role in various health conditions: R V N/R * Differences between complex carbohydrates a simple carbohydrates, role of fiber in diet: R * Lean protein sources of foods: R V NR * Differences between types of fats and role in diet (mono on saturated fat fatty acids, saturated fatty acids, trans fats): R * Food sources of sodium in salt and healthy modifications for heart health in kidney health: R V R/V * Vitamins and minerals: R V N/R * Healthy plate method concept: R * Physical activity: Benefits a precaution: R * Patient Instructions: Include foods with Calcium, 1300mg/d see list of food options, including non dairy food items Coding Level of Care Code Nutr Indiv Intake (08654) Diagnoses Obesity E66.9 Time Spent (min) 30
[2025-01-25 13:16] VITALS: BMI 40.9
[2025-02-02 13:23] VITALS: BMI 41.0
== END 2025-01-25 13:53 | disposition home or self-care (01) ==
LOC: HO.ENCR 13:04
PROVIDERS: PCP Internal Medicine; Visit Provider Dietitian, Registered
DX: E66.9 Obesity, unspecified (principal)

== ENCOUNTER → 2025-01-25 13:04 | Outpatient (BNVA) | payer OTHER, SELFPAY | PROVIDERS: PCP Internal Medicine; Visit Provider Dietitian, Registered | DX: E66.9 Obesity, unspecified (principal); Z68.41 Body mass index [BMI] 40.0-44.9, adult | CPT/HCPCS: 97802 ==

== ENCOUNTER 2025-03-09 10:08 | Outpatient (AMB) | payer OTHER, SELFPAY ==
--- NOTE | 2025-03-09 07:55 | A.OFFVIS_ITS ---
Vital Signs 03/09/25 10:11 Height 5 ft 2 in Weight 221 lb 9.033 oz BMI 40.5 BP 120/72 Blood Pressure Location Lt brachial Position Sitting Pulse 72 Pulse Source Pulse Oximeter Pulse Oximetry (%) 98 Oxygen Delivery Method Room Air Intake Visit Reasons: Obesity Intake Note: Patient present today for Obesity office visit. Channel Account Manager Required: No Accompanied by: Self / Same As Patient Allergies acetaminophen [From Vicodin] Allergy (Mild, Verified 03/09/25 10:15) Seizure aripiprazole [From Abilify] Allergy (Mild, Verified 03/09/25 10:15) Fainting hydrocodone [From Vicodin] Allergy (Mild, Verified 03/09/25 10:15) Seizure methenamine Allergy (Mild, Verified 03/09/25 10:15) Hives oxycodone Allergy (Mild, Verified 03/09/25 10:15) Seizure HPI Comments Details: The patient is a 29-year-old female presenting for an evaluation of obesity. She was seen by Dr. Clay 01/06/25 and had been restarted on levothyroxine for hypothyroidism and advised to see a superintendent geophysical laboratory which she did last month and was advised to follow a 2000 calorie diet. She is in a tracking linnette on her phone in his sticking to less than 1700 calories per day taking an adequate protein. She describes substantial weight gain several years prior. The patient has adhered to various diets, including the ketogenic diet, and consulted with a superintendent geophysical laboratory. Although she initially lost weight, she has been unable to progress further over the last year and a half. Hypothyroidism was identified by her primary care provider, with Rickie's Thyroiditis as the underlying cause. Previously, she was on levothyroxine but discontinued it, which contributed to her current hypothyroid state. Occasionally, the patient snores but hasn't undergone evaluation for sleep apnea and denies Deanna?s syndrome symptoms. She also recently underwent surgery for cauda equina syndrome and has been relatively inactive Secondary to her recent surgery she is limited in her exercise but has started to walk daily. For behavioral modification she is going through her work book which she purchased a year ago called [employer]. Review of Systems - Sleep: Reports occasional snoring There are lab orders for TSH free T4. She has been consistently taking her medication on an empty stomach and takes it daily with no other food or medication. [facility] Medical History (Updated 01/06/25 @ 14:57 by Major Clay MD) Hypothyroidism Obesity delivery delivered Surgical History H/O umbilical hernia repair History of lumbar laminectomy Family History Mother Thyroid ca Father Hyperthyroidism Cerebral palsy Skin cancer Social History Alcohol intake: current Alcohol intake frequency: a few times a month Physical Exam Vital Signs: Last Vital Signs Pulse 72 03/09/25 10:11 BP 120/72 03/09/25 10:11 Pulse Ox 98 03/09/25 10:11 Oxygen Delivery Method Room Air 03/09/25 10:11 BMI result Body Mass Index 40.5 Const Other: Absence of Cushingoid features. Absence of acromegalic features. Neck exam reveals nl size thyroid about 15 gms. No thyroid nodules palpable. Heart S1 S2, Reg R/R. No M/R G. Skin exam reveals absence of vitiligo or acanthosis nigricans. No edema Assessment & Plan Assessment & Plan (1) Hypothyroidism: Code(s): E03.9 - Hypothyroidism, unspecified Category: Medical Plan: She reports feeling better with more energy and has lost weight since her last visit. She is taking levothyroxine consistently and we will go to the lab this week to check her TSH free T4. (2) Obesity: Code(s): E66.9 - Obesity, unspecified Category: Medical Plan: This is a 29-year-old female with hypothyroidism and obesity who has been unable to effectively lose weight. Her exercise is limited secondary to recent surgery but she has increased her walking. She is tracking her calories on a phone linnette sticking to less than 1700. She will continue to go through the work book entitled self love and we will purchased the learn methodology for weight control which emphasizes lifestyle, exercise, attitudes, relationships and nutrition strategies towards behavioral modification to aide in the weight loss. She is waiting an answer to the appeal Dr. Clay submitted for [employer]. As of the end of March she will have completed a 3 month weight management program. She is due to hear a decision in the next week. Side effects of GLP-1 agonist were reviewed: Nausea, vomiting, diarrhea, h eadache, dehydration or low blood sugar. Rare acute kidney injury which can result from dehydration. Pancreatitis and gallstones. Contraindicated in MEN or family history of thyroid medullary cancer. She was advised that Zepbound can reduce the effectiveness of control. She is not on control in his not active sexually at this time Coding Level of Care Code Est Pt Level 3 (38597) Complex EM visit Add On G2211 Diagnoses Hypothyroidism E03.9 Obesity E66.9 Time Spent (min) 30 Comment Time spent reviewing labs/provider notes, face to face, chart doc
[2025-03-09 10:11] VITALS: BP 120/72; PULSE 72; O2SAT 98; BMI 40.5
--- OUTSIDE RECORDS SUMMARY | 2025-03-09 11:33 | XMS_ITS | Clinical Summary ---
Author Organization [facility] '[facility] Address [address] [place] [id number] Care Team Providers Care Manager Labor Relations Name Role Phone Unavailable Primary Care Provider [...] so, obtain the minor's consent prior to disclosure.[facility] Social History Tobacco Use Types Packs/Day Years Used Date Smoking Tobacco: Never Assessed Comments Unknown Sex and Gender Information Value Date Recorded Sex Assigned at Not on file Legal Sex Female 2:22 AM EST Gender Identity Not on file Sexual Orientation Not on file Plan of Treatment Not on file
--- OUTSIDE RECORDS SUMMARY | 2025-03-09 11:34 | XMS_ITS | Data Portability ---
Author Organization [facility], [facility] (Prof.) Address [address], [address] [place] [address] Assessment No assessment recorded. Plan of Treatment [...] SNOMED-CT Code Diagnosis ICD10 Code Diagnosis Note [address] [place] [address] 11/27/2017 14:25:52 11/27/2017 14:26:06 Health Concerns Section Related Observation LastModified by Organization Detai ls LastModified Time None Recorded Concern Status LastModified by Organization Details LastModified Time None Recorded Advance Directives Directive None Recorded Payers Encounter Date Sequence Insurance Name Policy Number Policy Melton Covered Member ID Melton Member ID Guarantor Name 11/27/2017 1 [facility] HEALTH NET PLAN (MEDICAID HMO) [id number] Shirley Roldan [id number] Shirley Roldan OBGyn Episode No OBEpisode recorded.
--- OUTSIDE RECORDS SUMMARY | 2025-03-09 11:34 | XMS_ITS | Clinical Summary ---
Author Organization [employer] Address [address] [place] [address] Care Team Providers Care Student Development Specialist Name Role Phone Unavailable Primary Care Provider [...] patient's age to complete this topic Insurance [facility] MEDICAID STAND ADULT
--- OUTSIDE RECORDS SUMMARY | 2025-03-09 11:34 | XMS_ITS | Data Portability ---
Author Organization [place] [facility] Address [address] [place] [address] Care Team Providers Care Dairy Associate Name Role Phone JOS RAYO Primary Care Provider [phone] Assessment Encounter Date Assessment Date Assessment LastModified by Organization Details LastModified Time 09/30/2015 09/30/2015 ??Reviewed causative agents, symptomatic relief reviewed, check vaginal AFFIRM, tx accordingly Check urine C&S, gen probe ??Rx for Mycolog II cream ERXed Delines other [...] DO Not Attach Compendium, Do Not Delete/merge, [id number] 5 15:03:26 CT + NG DNA, PCR, unspecified specimen 2014 015 CHRISTY Not available 5 13:26:14 test, urine 2014 015 robson Mehta In-Office Order, Internal Use Only DO Not Attach Compendium DO Not Attach Compendium, Do Not Delete/merge, [id number] 5 16:37:24 bacterial vaginosis + vaginitis panel, vaginal 2014 015 CHRISTY Not available 22:41:29 Referral None recorded. Procedures None recorded. Surgeries None recorded. Imaging None recorded. Medication Orders nystatin-tr iamcinolone 100,000 unit/g-0.1 % topical cream 2014 015 cbinette [facility] - [address] [place] [address], [id number], 5 11:53:45 [employer] a 150 mg/mL intramuscul ar syringe 2014 015 cbinette Not available 5 10:07:11 [employer] a 150 mg/mL intramuscul ar syringe 2014 015 cbinette [facility] - [address] [place] [address], [id number], 5 10:07:11 Patient TargetsNo targets recorded. Patient Instructions Encounter Date Encounter Id Patient Instructions Last Modified By Organization Details Last Modified Time 04/15/2015 [id number] trichomoniasis: care instructions [id number] Not available 06/03/2015 04:27:47 Reason for Referral None Reported. Results Created Date Observation Date Name Description Value Unit Range Abnormal Flag Note LastModifiedBy Organization Detail LastModifiedTime 04/29/20 15 04/29/2015 pregn jean test, urine Result negati ve Not Available In-Office Order Internal Use Only DO Not Attach Compendium DO Not Attach Compendium, Do Not Delete/merge, [id number] 04/29/2015 13:27:34 04/15/20 15 04/17/2015 bacte rial vagin osis + vagin itis panel , vagin al trichomonas vaginalis DNA Negati ve negati ve Not Available [facility] [address], [place], [address], 04/17/2015 22:41:29 04/15/20 15 04/17/2015 bacte rial vagin osis + vagin itis panel , vagin al gardnerella vaginalis DNA Negati ve negati ve Not Available [facility] [address] [place], [address], 04/17/2015 22:41:29 04/15/20 15 04/17/2015 bacte rial vagin osis + vagin itis panel , vagin al makenna species DNA Negati ve negati ve Not Available [facility] [address] [place], [address], 04/17/2015 22:41:29 09/29/20 15 09/30/2015 beta- HCG, quant itati ve, serum or plasm a beta-HCG, quantitative <1 mIU/m L <5 Not Available [facility] [address] [place] [address], [id number], 09/30/2015 04:06:10 09/30/20 15 10/01/2015 urina lysis , compl ete color Yellow Not Available [facility] [address] [place], [address], 10/03/2015 13:26:12 09/30/20 15 10/01/2015 urina lysis , compl ete clarity Slight ly cloudy Not Available [facility] [address] [place] [address], [id number], 10/03/2015 13:26:12 09/30/20 15 10/01/2015 urina lysis , compl ete specific gravity 1.020 1.003- 1.030 Not Available [facility] [address] [place] [address], [id number], 10/03/2015 13:26:12 09/30/20 15 10/01/2015 urina lysis , compl ete pH 7.0 5.0-8. 0 Not Available [facility] [address] [place] [address], [address], 10/03/2015 13:26:12 09/30/20 15 10/01/2015 urina lysis , compl ete leukocyte esterase Negati ve negati ve Not Available [facility] [address] [place], [address], 10/03/2015 13:26:12 09/30/20 15 10/01/2015 urina lysis , compl ete nitrite Negati ve negati ve Not Available [facility] [address] [place], [address], 10/03/2015 13:26:12 09/30/20 15 10/01/2015 urina lysis , compl ete protein Negati ve negati ve Not Available [facility] [address] [place], [address], 10/03/2015 13:26:12 09/30/20 15 10/01/2015 urina lysis , compl ete glucose 0 mg/dL 0-99 Not Available [facility] [address] [place], [place] [address]Janice [place] [place], [address], 10/03/2015 13:26:12 09/30/20 15 10/01/2015 urina lysis , compl ete ketone Negati ve negati ve Not Available [facility] [address] [place], [address], 10/03/2015 13:26:12 09/30/20 15 10/01/2015 urina lysis , compl ete urobilinogen <2.0 mg/dL <2.0 Not Available [facility] [address] [place], [place] [address]Janice [place] [place], [address], 10/03/2015 13:26:12 09/30/20 15 10/01/2015 urina lysis , compl ete bilirubin Negati ve negati ve Not Available [facility] [address] [place], [place] [address], [address], 10/03/2015 13:26:12 09/30/20 15 10/01/2015 urina lysis , compl ete hemoglobin Negati ve negati ve Not Available [facility] [address] [place], [place] [address], [address], 10/03/2015 13:26:12 09/30/20 15 10/01/2015 urina lysis , compl ete WBC 0 per_h pf 0-4 Not Available [facility] [address] [place], [address], 10/03/2015 13:26:12 09/30/20 15 10/01/2015 urina lysis , compl ete RBC 0 per_h pf 0-4 Not Available [facility] [address] [place], [address], 10/03/2015 13:26:12 09/30/20 15 10/01/2015 urina lysis , compl ete amorphous crystals Presen t Not Available [facility] [address] [place], [address], 10/03/2015 13:26:12 09/30/20 15 10/02/2015 cultu re, urine source Clean catch Not Available [facility] [address] [place], [address], 10/03/2015 13:26:13 09/30/20 15 10/02/2015 cultu re, urine culture Steri le or less than 1000 col/m L. Not Available [facility] [address] [place] [address], [address], 10/03/2015 13:26:13 09/30/20 15 10/02/2015 cultu re, urine status FINAL 10/02 Not Available [facility] [address] [place], [address], 10/03/2015 13:26:13 09/30/20 15 10/03/2015 CT + NG DNA, PCR, unspe cifie d speci men source urine Not Available [facility] [address] [place], [address], 10/03/2015 13:26:14 09/30/20 15 10/03/2015 CT + NG DNA, PCR, unspe cifie d speci men chlamydia by DNA Negati ve negati ve Not Available [facility] [address] [employer], [place], [address], 10/03/2015 13:26:14 09/30/20 15 10/03/2015 CT + NG DNA, PCR, unspe cifie d speci men GC by DNA Negati ve negati ve Not FDA appro cami for GC/Ch lamyd ia in SureP ath, recta l and throa t speci mens. Test valid ated by CLP for detec ting GC/Ch lamyd ia from these [facility] es. Not Available [facility] [address] [employer], [place], [address], 10/03/2015 13:26:14 09/30/20 15 09/30/2015 bacte rial vagin osis + vagin itis panel , vagin al Results Positi ve Not Available In-Office Order Internal Use Only DO Not Attach Compendium DO Not Attach Compendium, Do Not Delete/merge, [id number] 09/30/2015 11:52:47 Result Notes None recorded. Problems Name Problem SNOMED Code Status Onset Date Resolution Date Notes Provider Name and Address Organization Details Recorded Time Hypothyroid ism 44424066 Completed 201106/20/2015 Damrais Bersadiame null, [facility] 5 14:33:51 Anemia 166845026 Completed 201106/20/2015 Damaris Bercume null, [facility] 5 14:33:51 Anxiety 90772197 Completed 06/20/2015 Damaris Bercume null, [facility] 5 14:33:51 Hypercholes terolemia 44560547 Completed 06/20/2015 Damaris Bercume null, [facility] 5 14:33:51 Migraine with aura 6923853 Completed 201406/20/2015 Damaris Bercume null, [facility] 5 14:33:51 Bradycardia 18398516 Completed 201206/20/2015 Damaris Shafer null, [facility] 5 14:33:51 Depressive disorder 96170670 Completed 201106/20/2015 Damaris Shafer [facility] 5 14:33:51 Infection by Trichomonas 87080077 Completed 06/20/2015 Damariscortez Shafer [facility] 5 14:33:51 Pure hypercholes terolemia 867173477 Completed 201106/20/2015 [facility] 14:33:51 Anxiety state 748746586 Completed 201106/20/2015 Damariscortez Shafer [facility] 5 14:33:51 Amenorrhea 49977255 Active Leigh Meyers [facility] 5 09:33:55 Vaginitis and vulvovagini tis Active Ana María Gomezteri [facility] 5 11:53:45 Urinary tract infectious disease 76840440 Active Ana María Gomezteri [facility] 5 11:53:45 Problem Notes None recorded. Procedures Surgical History Date Name Laterality Status Provider Name and Address Organization Details Recorded Time 5 Date of Last Pap Smear completed Jos Casillas [facility] 06/07/2015 12:20:28 Imaging Results None recorded. Procedure Notes None recorded. Medical Equipment None Reported. Allergies Allergen ID Allergen Name Allergen Category Reaction Reaction Severity Criticality Documentation Date Start Date Code Code System Note Provider Name and Address Organization Details Recorded Time 629930 acetamino phen medicatio n Not available Not available Not available 04/13/[address] [facility] 5 11:28:01 004961 oxycodone medicatio n Not available Not available Not available 04/13/2015 7804 RxNorm Damaris Shafer null, [facility] 5 13:24:00 144665 hydrocodo ne Not available Not available Not available Not available 04/13/2015 5489 RxNorm Damaris Shafer null, [facility] 5 13:24:00 348193 hydrocodo ne bitartrat e medicatio n Not available Not available Not available 04/19/20152012 92049 9 RxNorm COMME NT: CAUSA TIVE AGENT : VICOD IN; Not Available [facility] 5 09:47:23 033234 oxycodone hydrochlo ride medicatio n Not available Not available Not available 04/19/20152011 78770 RxNorm COMME NT: CAUSA TIVE AGENT : PERCO CET; Not Available [facility] 5 09:47:23 623611 acetamino phen medicatio n Not available Not available Not available 04/19/20152011 161 RxNorm COMME NT: CAUSA TIVE AGENT : PERCO CET; Not Available [facility] 5 09:47:23 Medications Name Sig Start Date [...] Address Organization Details Last Updated DateTime 04/29/2015 298814.353 54 g 100 mm[Hg] 60 mm[Hg] Ana María Binette [facility] 04/29/2015 13:19:46 Date Recorded Body weight Systolic blood pressure Diastolic blood pressure Provider Name and Address Organization Details Last Updated DateTime 09/30/2015 649330.837 47 g 114 mm[Hg] 68 mm[Hg] Ana María Gutierrez [facility] 09/30/2015 10:06:53 Date Recorded Body height Body mass index (BMI) Body weight Systolic blood pressure Diastolic blood pressure Provider Name and Address Organization Details Last Updated DateTime 04/15/2015 160.02 cm 42.9 kg/m2 394986.3 5354 g 110 mm[Hg] 74 mm[Hg] Jos Casillas [facility] 11:25:34 Social History Question Answer Notes LastModified by Organizat ion Details LastModified Time Tobacco Smoking Status Former Smoker Quit 2 months ago Jos Casillas [facility], [facility] 04/15/2015 11:29:00 How Much Tobacco Do You [...] of f amily Medical History Condition Response HIV N Spina Bifida N Heart Problems N Other N Sexual Dysfunction N Blood clots N Breast Cancer N Autoimmune disorder N Kidney or Bladder Problems N Thyroid Problems N Colon cancer N Benign breast disease N GI Problems N Depression N Lung Disease N Defects or Inherited Disease N Eating Disorder N Anemia N Multiple Sclerosis N Anesthesia Complications N Headaches/Migraines N Psychiatric Illness N Ovarian Cancer N Diabetes N Anxiety Disorder N Blood Transfusions N Bladder disease N Arthritis N HSV N Infertility N Interstitial Cystitis N Abnormal Uterine Bleeding N Hyperlipidemia N Acid Reflux (GERD) N Cancer N BrCa positive N Diverticulitis N Abuse/Domestic Violence N Stroke N Asthma N Endometriosis N Hepatitis N Fibromyalgia N Hypertension N Osteoporosis N Thrombophilias N [...] SNOMED-CT Code Diagnosis ICD10 Code Diagnosis Note [id number] [facility] [place] [address] 04/15/2015 11:13:05 04/18/2015 09:17:09 Venereal disease screening [id number] KIZZY done today for trichomona s. Reviewed safe sex practices. Infection by Trichomonas 36405417 see above Contracept ion care management 329378678 Patient counseled at time of annual regarding contracept ion options, wishes to restart DMPA. Risks vs benefits and side effects reviewed. Advised to supplement with calcium. One year erxd to pharmacy. Patient to call for injection with menses. [id number] [facility] [address] [place] [address] 11/12/2012 00:00:00 [id number] [facility] [address] [place] [address] 02/04/2013 00:00:00 [id number] [facility] [address] [place] [address] 05/05/2013 00:00:00 [id number] [facility] [address] [place] [address] 09/16/2013 00:00:00 [id number] [facility] [address] [place] [address] 03/10/2015 00:00:00 [id number] [facility] [address] [place] [address] 04/29/2015 13:04:43 05/02/2015 13:18:01 Family planning surveillance [id number] Cesia Shafer [facility] [address] [place] [address] 06/24/2015 11:12:18 06/24/2015 11:16:52 [id number] SCOTT WEEMS MD [facility] [address] [place] [address] 09/30/2015 10:00:47 10/03/2015 09:27:28 Vaginitis and vulvovaginitis 326859906 N76.0 Urinary tr act infectious disease 14422590 N39.0 Health Concerns Section Related Observation LastModified by Organization Detai ls LastModified Time None Recorded Concern Status LastModified by Organization Details LastModified Time None Recorded Advance Directives Directive None Recorded Payers Encounter Date Sequence Insurance Name Policy Number Policy Melton Covered Member ID Melton Member ID Guarantor Name 04/15/2015 1 [employer]: [employer] FUND - PERSONAL CHOICE (PPO) [id number] [id number] MOTHER Shirley Roldan 04/29/2015 1 [employer]: [employer] - [employer] FUND - PERSONAL CHOICE (PPO) [id number] [id number] MOTHER Shirley Roldan 06/24/2015 1 [employer]: [employer] - [employer] W[employer] FUND - PERSONAL CHOICE (PPO) [id number] [id number] MOTHER Shirley Roldan 09/30/2015 1 [employer]: [employer] - [employer] W[employer] FUND - PERSONAL CHOICE (PPO) [id number] [id number] MOTHER Shirley Roldan OBGyn Episode No OBEpisode recorded.
--- OUTSIDE RECORDS SUMMARY | 2025-03-09 11:34 | XMS_ITS | Clinical Summary ---
Author Organization 175 [facility] Address [address] [place] [address] Phone Care Team Providers Care Headwaiter/Headwaitress Name Role Phone Darrin Nelson MD Primary Care Provider [phone] Allergies Active Allergy Reactions Criticality Noted Date [...] 1 (one) time each day. 30 each 5 11/26/19 26 Active docusate sodium (COLACE) 100 mg capsule Take 1 capsule (100 mg total) by mouth. 4 Active multivitamin with minerals tablet Take 1 tablet by mouth 1 (one) time each day. Active cranberry fruit (cranberry) 450 mg tablet Take by mouth. Activ e lactobacillus acidoph-l.bulga r 100 million cell granules in packet Take 1 packet by mouth. Active cyclobenzaprine (FLEXERIL) 10 mg tablet Take 1 tablet (10 mg total) by mouth at bedtime as needed for muscle spasms. 30 tablet 5 04/27/20 25 Active diclofenac (Cataflam) 50 mg tablet Take 1 tablet (50 mg total) by mouth 2 (two) times a day for 10 days. 20 each 5 Active Active Problems Problem Noted Date Diagnosed [...] Encounters Date Type Department Care Team Description 03/01/2025 2:30 PM EDT Office Visit Internal Medicine - [address] [address] Darrin Nelson MD Muscle spasm of back (Primary Dx) 02/26/2025 1:45 PM EDT Office Visit Walk-In Clinic - [address] [address] Erica Calvo NP Acute pain of right shoulder (Primary Dx) 02/26/2025 Telephone Internal Medicine - [address] [address] Darrin Nelson MD Shoulder Pain 02/19/2025 Telephone Internal Medicine [facility] 175 [facility] [address] [place] [address] Darrin Nelson MD Sore Throat 01/04/2025 11:30 AM EST Office Visit General Surgery [address] [place] [address] Ed Yadav MD Anal fissure (Primary Dx) 12/17/2024 Telephone Internal Medicine [facility] 175 [facility] [address] [place] [address] Chino Wallace [place] Results from Last 3 Months Immunizations Name Administration [...] Smoking Tobacco: Every Day Smokeless Tobacco: Never Tobacco Cessation:Ready to Q uit: Not Asked; Counseling Given: Not Answered Alcohol Use Standard Drinks/Week Comments Yes 0 (1 standard drink = 0.6 oz pur e alcohol) Comments Unknown Sex and Gender Information Value Date Recorded Sex Assigned at Not on file Legal Sex Female 6:57 PM EST Gender Identity Not on file Sexual Orientation Not on file Obstetrics History Last Filed Vital Signs Vital Sign Reading Time Taken Comments Blood Pressure 117/72 03/01/2025 2:31 PM EDT Pulse 62 03/01/2025 2:31 PM EDT Temperature 36.5 ??C (97.7 ??F) 02/26/2025 1:50 PM ED T Respiratory Rate - - Oxygen Saturation 99% 03/01/2025 2:31 PM EDT Inhaled Oxygen Concentration - - Weight 103 kg (226 lb) 03/01/2025 2:31 PM EDT Height 157.5 cm (5' 2 ) 01/04/2025 11:41 AM EST Body Mass Index 41.34 01/04/2025 11:41 AM EST Plan of Treatment Upcoming Encounters Date Type Department Care Team (Late st Contact Info) Description 03/12/2025 3:45 PM EDT Office Visit Obstetrics and Gynecology [facility] [address] [place] [address] Kelli Odonnell, [facility] [address] [place] [address] 03/17/2025 8:15 AM EDT Office Visit Internal Medicine - [place] 175 [facility] [address] [place] [phone] Darrin Nelson MD 175 [facility] [address] [place] [address] 03/23/2025 11:00 AM EDT Evaluation [facility] - [place] 175 [facility] [address] [place] [phone] Sara Azar, PT Health Maintenance Due Date Last Done Comments Hepatitis B Vaccines (1 of 3 - 19+ 3-dose series) 2012 Pneumococcal Vaccine: Pediatrics (0 to 5 Years) and At-Risk Patients (6 to 64 Years) (1 of 2 - PCV) 2012 Depression Screening 10/20/2022 Social Influencers of Health Screening 10/20/2022 COVID-19 Vaccine (4 - 2023-2 5 season) 2024 01/03/2022, 07/18/2021, 06/21/2021 Influenza Vaccine (Season Ended) 2025 08/20/2019, 08/28/2017 DTaP,Tdap,and Td Vaccines (2 - Td [...] age to complete this topic Meningococcal B Vaccine Aged Out No l onger eligible based on patient's age to complete [...] Hives HM HEPATITIS C SCREENING Routine 02/28/2024 HM HIV SCREENING Routine 02/28/2024 HM HPV Routine 12/06/2023 from Last 3 Months or Most Recently Relevant to Health Maintenance Results * (ABNORMAL) Lipid panel with reflex to direct LDL (12/15/2024 10:10 AM EST) Cholesterol 187 0 - 200 mg/dL LAB CHEMISTRY METHOD 12/15/2024 1:20 PM EST [facility] Triglycerides 44 0 - 150 mg/dL LAB CHEMISTRY METHOD 12/15/2024 1:20 PM EST [facility] HDL 71 >=40 mg/dL LAB CHEMISTRY METHOD 12/15/2024 1:20 PM EST [facility] LDL Calculated 107(H) 0 - 100 mg/dL LAB CHEMISTRY METHOD 12/15/2024 1:20 PM EST [facility] VLDL Cholesterol Len 8.8 mg/dL LAB CHEMISTRY METHOD 12/15/2024 1:20 PM EST [facility] Non HDL Chol. (LDL+VLDL) 116 <145 mg/dL LAB CHEMISTRY METHOD 12/15/2024 1:20 PM EST [facility] Chol/HDL Ratio 2.6 0.0 - 4.4 LAB CHEMISTRY METHOD 12/15/2024 1:20 PM EST [facility] Blood Venous blood specimen / Unknown Venipuncture / Unknown 12/15/2024 10:10 AM EST 12/15/2024 10:10 AM EST us Darrin Nelson MD LAB BLOOD ORDERABLES Final Resul t [facility] [address] [place] [address], * CBC auto differential (12/15/2024 10:10 AM EST) WBC 8.3 4.8 - 10.8 K/[facility] LAB HEMETOLOGY METHOD 12/15/2024 12:25 PM EST [facility] RBC 4.10 3.80 - 4.80 M/[facility] LAB HEMETOLOGY METHOD 12/15/2024 12:25 PM [facility] Hemoglobin 12.4 11.5 - 16.0 g/dL LAB HEMETOLOGY METHOD 12/15/2024 12:25 PM [facility] Hematocrit 38.0 35.0 - 47.0 % LAB HEMETOLOGY METHOD 12/15/2024 12:25 PM [facility] MCV 92.9 79.0 - 98.0 FL LAB HEMETOLOGY METHOD 12/15/2024 12:25 PM [facility] MCH 30.3 27.0 - 32.0 pcg LAB HEMETOLOGY METHOD 12/15/2024 12:25 PM [facility] MCHC 32.6 32.0 - 37.0 g/dL LAB HEMETOLOGY METHOD 12/15/2024 12:25 PM [facility] RDW 13.2 11.0 - 15.0 % LAB HEMETOLOGY METHOD 12/15/2024 12:25 PM [facility] Platelets 251 130 - 400 K/mcL LAB HEMETOLOGY METHOD 12/15/2024 12:25 PM [facility] MPV 10.6 7.0 - 11.0 FL LAB HEMETOLOGY METHOD 12/15/2024 12:25 PM [facility] NRBC 0.0 <1.0 % LAB HEMETOLOGY METHOD 12/15/2024 12:25 PM [facility] NRBC Absolute 0.00 <0.10 K/mcL LAB HEMETOLOGY METHOD 12/15/2024 12:25 PM [facility] Neutrophils Relative 72.0 % LAB HEMETOLOGY METHOD 12/15/2024 12:25 PM [facility] Lymphocytes Relative 20.9 % LAB HEMETOLOGY METHOD 12/15/2024 12:25 PM [facility] Monocytes Relative 5.6 % LAB HEMETOLOGY METHOD 12/15/2024 12:25 PM EST [facility] Eosinophils Relative 0.7 % LAB HEMETOLOGY METHOD 12/15/2024 12:25 PM [facility] Basophils Relative 0.4 % LAB HEMETOLOGY METHOD 12/15/2024 12:25 PM [facility] Immature Granulocytes Relative 0.4 % LAB HEMETOLOGY METHOD 12/15/2024 12:25 PM EST [facility] Neutrophils Absolute 5.95 1.50 - 7.00 K/mcL LAB HEMETOLOGY METHOD 12/15/2024 12:25 PM [facility] Lymphocytes Absolute 1.73 1.00 - 5.00 K/mcL LAB HEMETOLOGY METHOD 12/15/2024 12:25 PM [facility] Monocytes Absolute 0.46 0.20 - 1.00 K/mcL LAB HEMETOLOGY METHOD 12/15/2024 12:25 PM EST [facility] Eosinophils Absolute 0.06 0.00 - 0.50 K/mcL LAB HEMETOLOGY METHOD 12/15/2024 12:25 PM [facility] Basophils Absolute 0.03 0.00 - 0.20 K/mcL LAB HEMETOLOGY METHOD 12/15/2024 12:25 PM [facility] Immature Granulocytes Absolute 0.03 0.00 - 0.03 K/mcL LAB HEMETOLOGY METHOD 12/15/2024 12:25 PM [facility] Blood Venous blood specimen / Unknown Venipuncture / Unknown 12/15/2024 10:10 AM EST 12/15/2024 10:10 AM EST us Darrin Nelson MD LAB BLOOD ORDERABLES Final Resul t [facility] [address] [place] [address], * (ABNORMAL) Thyroid stimulating hormone (12/15/2024 10:10 AM EST) TSH 41.29(H) 0.40 - 4.00 mcIU/mL LAB CHEMISTRY METHOD 12/15/2024 1:11 PM [facility] Blood Venous blood specimen / Unknown Venipuncture / Unknown 12/15/2024 10:10 AM EST 12/15/2024 10:10 AM EST us Darrin Nelson MD LAB BLOOD ORDERABLES Final Resul t [facility] [address] [place] [address], [place] [phone] * (ABNORMAL) Comprehensive metabolic panel (12/15/2024 10:10 AM EST) Pathologist [facility] Sodium 139 133 - 145 mmol/L LAB CHEMISTRY METHOD 12/15/2024 1:14 PM [facility] Potassium 4.1 3.5 - 5.5 mmol/L LAB CHEMISTRY METHOD 12/15/2024 1:14 PM [facility] Chloride 107 96 - 110 mmol/L LAB CHEMISTRY METHOD 12/15/2024 1:14 PM [facility] CO2 28 21 - 32 mmol/L LAB CHEMISTRY METHOD 12/15/2024 1:14 PM [facility] Anion Gap 4 3 - 11 LAB CHEMISTRY METHOD 12/15/2024 1:14 PM [facility] Glucose 84 70 - 100 mg/dL LAB CHEMISTRY METHOD 12/15/2024 1:14 PM [facility] BUN 15 5 - 25 mg/dL LAB CHEMISTRY METHOD 12/15/2024 1:14 PM [facility] Creatinine 0.65 0.50 - 1.10 mg/dL LAB CHEMISTRY METHOD 12/15/2024 1:14 PM [facility] eGFR 121 >=60 mL/min/1. 73m2 LAB CHEMISTRY METHOD 12/15/2024 1:14 PM [facility] Comment:Calculation based on the??Chronic Kidney Disease Epidemiology Collaboration (CKD-EPI) equation refit??without adjustment for race. BUN/Creatinine Ratio 23.1 LAB CHEMISTRY METHOD 12/15/2024 1:14 PM [facility] Calcium 8.8 8.5 - 10.5 mg/dL LAB CHEMISTRY METHOD 12/15/2024 1:14 PM [facility] AST (SGOT) 22 10 - 42 unit/L LAB CHEMISTRY METHOD 12/15/2024 1:14 PM [facility] ALT (SGPT) 30 10 - 60 unit/L LAB CHEMISTRY METHOD 12/15/2024 1:14 PM [facility] Alkaline Phosphatase 37(L) 42 - 121 unit/L LAB CHEMISTRY METHOD 12/15/2024 1:14 PM [facility] Total Protein 6.9 6.0 - 8.0 g/dL LAB CHEMISTRY METHOD 12/15/2024 1:14 PM [facility] Albumin 3.9 3.2 - 5.0 g/dL LAB CHEMISTRY METHOD 12/15/2024 1:14 PM [facility] Total Bilirubin 0.4 0.0 - 1.4 mg/dL LAB CHEMISTRY METHOD 12/15/2024 1:14 PM [facility] Blood Venous blood specimen / Unknown Venipuncture / Unknown 12/15/2024 10:10 AM EST 12/15/2024 10:10 AM EST us Darrin Nelson MD LAB BLOOD ORDERABLES Final Resul t [facility] [address] [place] [address], * HIV Screening (02/28/2024) Pathologist [facility] HIV Screening abstracted Historical Provider HEALTH MAINTENANCE Final Result * Hepatitis C Screening (02/28/2024) Pathologist [facility] Hepatitis C Screening abstracted Historical Provider HEALTH MAINTENANCE Final Result * Cervical Cancer Screening: HPV (12/06/2023) Pathologist [facility] Cervical Cancer Screening: HPV negative, abstracted [facility] Provider HEALTH MAINTENANCE Final Result from Last 3 Months or Most Recently Relevant to Health Maintenance Insurance [facility] Care Teams Headwaiter/Headwaitress Relationship Specialty Start Date End Date Darrin Nelson MD [facility] [address] [place] [address] PCP - General 05/27/24
== END 2025-03-09 10:41 | disposition home or self-care (01) ==
LOC: HO.ENCR 10:08
PROVIDERS: PCP Internal Medicine; Visit Provider Nurse Practitioner Adult Health
DX: E03.9 Hypothyroidism, unspecified (principal); E66.9 Obesity, unspecified
CPT/HCPCS: 99213; G2211

== ENCOUNTER → 2025-03-09 10:08 | Outpatient (BNVA) | payer OTHER, SELFPAY | PROVIDERS: PCP Internal Medicine; Visit Provider Nurse Practitioner Adult Health | DX: E03.9 Hypothyroidism, unspecified (principal); E66.9 Obesity, unspecified; Z68.41 Body mass index [BMI] 40.0-44.9, adult | CPT/HCPCS: 99212 ==

== ENCOUNTER 2025-03-17 12:16 | Outpatient (REF) | payer OTHER, SELFPAY ==
--- OUTSIDE RECORDS SUMMARY | 2025-03-17 13:28 | XMS_ITS | Encounter Summary ---
Author Organization [facility] Address [address] [place] [address] Care Team Providers Care Delivery Engineer Name Role Phone Darrin Nelson MD Primary Care Provider [phone] Reason for Referral * Other Medical (Routine) - Closed Specialty Diagnoses / Procedures Referred By Contac t Referred To Contact Sleep Medicine Diagnoses DANIEL (obstructive sleep apnea) Snoring Procedures Home sleep test Darrin Nelson MD [address] [place] [address] Phone: tel: fax: Sleep Medicine Services [address] [address] Phone: tel: fax: Referral ID Status Reason Start Date Expiration Date Visits Re quested Visits Authorized [id number] Closed 03/17/2025 03/17/2026 1 1 Reason for Visit * Reason Comments Follow-up Encounter Details Date Type Department Care Team ([facility] st Contact Info) Description 03/17/2025 8:15 AM EDT Office Visit Internal Medicine - [address] [phone] Darrin Nelson MD [address] [place] [address] Snoring (Primary Dx); DANIEL (obstructive sleep apnea); Rickie's disease Social History Tobacco Use Types Packs/Day Years [...] Sign Reading Time Taken Comments Blood Pressure 116/70 03/17/2025 8:21 AM EDT Pulse 64 03/17/2025 8:21 AM EDT Temperature 35.6 ??C (96 ??F) 03/17/2025 8:21 AM EDT Respiratory Rate - - Oxygen Saturation 98% 03/17/2025 8:21 AM EDT Inhaled Oxygen Concentration - - Weight 101 kg (222 lb 9.6 oz) 03/17/2025 8:21 AM EDT Height - - Body Mass Index 40.71 01/04/2025 11:41 AM EST documented in this encounter Progress Notes * Darrin Nelson MD - 03/17/2025 8:15 AM EDT COMPLAINT possible sleep apnea IDENTIFIER: Shirley Roldan is a 29 y.o. old female. HPI: Ongoing problem with snoring and some symptoms suggestive of obstructive sleep apnea at night she says. Noted by family members. Overweight, trying to lose weight. 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 ACTIVE MEDICATIONS: Outpatient Medications Marked as Taking for the 03/17/25 encounter (Office Visit) with Darrin Neslon MD Medication Sig Dispense Refill acetaminophen (TYLENOL) 500 mg tablet Take 1 tablet (500 mg total) by mouth every 6 (six) hours if needed. bisacodyL (DULCOLAX) 10 mg suppository Insert 1 suppository (10 mg total) into the rectum 1 (one) time each day if needed. cetirizine HCl (ZYRTEC ORAL) Take 1 tablet by mouth 1 (one) time each day. cyclobenzaprine (FLEXERIL) 10 mg tablet Take 1 tablet (10 mg total) by mouth at bedtime as needed for muscle spasms. 30 tablet 0 docusate sodium (COLACE) 100 mg capsule Take 1 capsule (100 mg total) by mouth. HYDROmorphone (DILAUDID) 2 mg tablet Take 1 tablet (2 mg total) by mouth every 3 (three) hours if needed for severe pain. ibuprofen (ADVIL,MOTRIN) 800 mg tablet Take 1 tablet (800 mg total) by mouth 3 (three) times a day with meals. levothyroxine (SYNTHROID, LEVOTHROID) 137 mcg tablet Take 1 tablet (137 mcg total) by mouth 1 (one)time each day. multivitamin with minerals tablet Take 1 tablet by mouth 1 (one) time each day. senna-docusate (PERICOLACE) 8.6-50 mg per tablet Take 1 tablet by mouth 1 (one) time each day. 30 each 11 tamsulosin (FLOMAX) 0.4 mg 24 hr capsule ALLERGIES: Allergies Allergen Reactions Oxycodone Unknown oxycodone hydrochloride Aripiprazole Passed out and had a seizure Hydrocodone Unknown hydrocodone bitartrate Hydrocodone-Acetaminophen Passed out and had a seizure Oxycodone-Acetaminophen Other Passed out and had a seizure Tramadol Methenamine Hives PHYSICAL EXAM: Vitals: 03/17/25 0821 BP: 116/70 Pulse: 64 Temp: 35.6 ??C (96 ??F) SpO2: 98% APPEARANCE: Alert and in no acute distress EARS: External ears normal. LABS: Lab Results Component Value Date WBC 8.3 12/15/2024 HGB 12.4 12/15/2024 HCT 38.0 12/15/2024 MCV 92.9 12/15/2024 Lab Results Component Value Date NA 139 12/15/2024 K 4.1 12/15/2024 CO2 28 12/15/2024 CL 107 12/15/2024 BUN 15 12/15/2024 ALKPHOS 37 (L) 12/15/2024 Lab Results Component Value Date TSH 41.29 (H) 12/15/2024 Lab Results Component Value Date CHOL 187 12/15/2024 HDL 71 12/15/2024 TRIG 44 12/15/2024 No components found for: URINELEUK , URINENITR , URINEPRO , URINEPH , URINEBLD , URINESG , URINEKET , URINEBILI , URINEGLUC IMAGING: IMPRESSION: 1. Snoring 2. DANIEL (obstructive sleep apnea) 3. Rickie's disease PLAN: Hypothyroidism ,on labs done in December ,she has restarted her thyroid medicine .trying to lose weight. Symptoms of sleep apnea present. Home sleep study ordered. Does see endocrine documented in this encounter Plan of Treatment Upcoming Encounters Date Type Department Care Team (Late st Contact Info) Description 03/23/2025 11:00 AM EDT Evaluation [facility] [address] [phone] Sara Azar, PT 03/25/2025 11:15 AM EDT Appointment Ultrasound - [address] [phone] Scheduled Orders Name Type Priority Associated Diagnoses Orde r Schedule Home sleep test Sleep Center Routine DANIEL (obstructive sleep apnea) Snoring 1 Occurrences starting 03/17/2025 until 03/17/2026 documented as of this encounter Visit Diagnoses Diagnosis Snoring- Primary Other dyspnea and respiratory abnormality DANIEL (obstructive sleep apnea) Obstructive sleep apnea (adult) (pediatric) Rickie's disease Chronic lymphocytic thyroiditis documented in this encounter Care Teams Delivery Engineer Relationship Specialty Start Date End Date Darrin Nelson MD [address] [facility] [address] [place] [address] PCP - General 05/27/24 documented as of this encounter
--- OUTSIDE RECORDS SUMMARY | 2025-03-17 13:28 | XMS_ITS | Clinical Summary ---
Author Organization [facility] Address [address] [place] [address] Care Team Providers Care Hospital Admissions Officer Name Role Phone Unavailable Primary Care Provider [...] so, obtain the minor's consent prior to disclosure.[facility] Social History Tobacco Use Types Packs/Day Years Used Date Smoking Tobacco: Never Assessed Comments Unknown Sex and Gender Information Value Date Recorded Sex Assigned at Not on file Legal Sex Female 2:22 AM EST Gender Identity Not on file Sexual Orientation Not on file Plan of Treatment Not on file
--- OUTSIDE RECORDS SUMMARY | 2025-03-17 13:28 | XMS_ITS | Clinical Summary ---
Author Organization [employer] Address [address] [facility] [address] [place] [address] Care Team Providers Care Traffic Control Flagger Name Role Phone Unavailable Primary Care Provider [...] patient's age to complete this topic Insurance [facility] STAND ADULT
--- OUTSIDE RECORDS SUMMARY | 2025-03-17 13:28 | XMS_ITS | Data Portability ---
Author Organization [facility], _[facility] (Prof.) Address [address] [facility], [address] [place] [address] Assessment No assessment recorded. Plan of Treatment [...] SNOMED-CT Code Diagnosis ICD10 Code Diagnosis Note [id number] Evangelist Elder MD [address] [phone] 11/27/2017 14:25:52 11/27/2017 14:26:06 Health Concerns Section Related Observation LastModified by Organization Detai ls LastModified Time None Recorded Concern Status LastModified by Organization Details LastModified Time None Recorded Advance Directives Directive None Recorded Payers Encounter Date Sequence Insurance Name Policy Number Policy Melton Covered Member ID Melton Member ID Guarantor Name 11/27/2017 1 [facility]AN (MEDICAID HMO) [id number] Shirley Roldan [id number] Shirley Roldan OBGyn Episode No OBEpisode recorded.
--- OUTSIDE RECORDS SUMMARY | 2025-03-17 13:29 | XMS_ITS | Data Portability ---
Author Organization [place] - [facility], [facility] Address [address] [place] [address] Care Team Providers Care Manager Business Name Role Phone JOS RAYO Primary Care [...] DO Not Attach Compendium, Do Not Delete/merge, [id number] 5 15:03:26 CT + NG DNA, PCR, unspecified specimen 2014 015 CHRISTY Not available 5 13:26:14 test, urine 2014 015 robson Mehta In-Office Order, Internal Use Only DO Not Attach Compendium DO Not Attach Compendium, Do Not Delete/merge, [id number] 5 16:37:24 bacterial vaginosis + vaginitis panel, vaginal 2014 015 CHRISTY Not available 22:41:29 Referral None recorded. Procedures None recorded. Surgeries None recorded. Imaging None recorded. Medication Orders nystatin-tr iamcinolone 100,000 unit/g-0.1 % topical cream 2014 015 cbinette [facility] - [address] [place] [address], [id number], 5 11:53:45 Depo-Manuscript Editor a 150 mg/mL intramuscul ar syringe 2014 015 cbinette Not available 5 10:07:11 Depo-Manuscript Editor a 150 mg/mL intramuscul ar syringe 2014 015 cbinette [facility] - [address] [place] [address], [id number], 5 10:07:11 Patient TargetsNo targets recorded. Patient Instructions Encounter Date Encounter Id Patient Instructions Last Modified By Organization Details Last Modified Time 04/15/2015 [id number] trichomoniasis: care instructions [id number] Not available 06/03/2015 04:27:47 Reason for Referral None Reported. Results Created Date Observation Date Name Description Value Unit Range Abnormal Flag Note LastModifiedBy Organization Detail LastModifiedTime 04/29/20 15 04/29/2015 pregn jean test, urine Result negati ve Not Available In-Office Order Internal Use Only DO Not Attach Compendium DO Not Attach Compendium, Do Not Delete/merge, [id number] 04/29/2015 13:27:34 04/15/20 15 04/17/2015 bacte rial vagin osis + vagin itis panel , vagin al trichomonas vaginalis DNA Negati ve negati ve Not Available [facility] [address], [place], [address], 04/17/2015 22:41:29 04/15/20 15 04/17/2015 bacte rial vagin osis + vagin itis panel , vagin al gardnerella vaginalis DNA Negati ve negati ve Not Available [facility] [address] [place], [address], 04/17/2015 22:41:29 04/15/20 15 04/17/2015 bacte rial vagin osis + vagin itis panel , vagin al makenna species DNA Negati ve negati ve Not Available [facility] [address] [place], [address], 04/17/2015 22:41:29 09/29/20 15 09/30/2015 beta- HCG, quant itati ve, serum or plasm a beta-HCG, quantitative <1 mIU/m L <5 Not Available [facility] [address] [place] [address], [address], 09/30/2015 04:06:10 09/30/20 15 10/01/2015 urina lysis , compl ete color Yellow Not Available [facility] [address] [place], [address], 10/03/2015 13:26:12 09/30/20 15 10/01/2015 urina lysis , compl ete clarity Slight ly cloudy Not Available [facility] [address] [place] [address], [address], 10/03/2015 13:26:12 09/30/20 15 10/01/2015 urina lysis , compl ete specific gravity 1.020 1.003- 1.030 Not Available [facility] [address] [place] [address], [id number], 10/03/2015 13:26:12 09/30/20 15 10/01/2015 urina lysis , compl ete pH 7.0 5.0-8. 0 Not Available [facility] [address] [place] [address], [address], 10/03/2015 13:26:12 09/30/20 15 10/01/2015 urina lysis , compl ete leukocyte esterase Negati ve negati ve Not Available [facility] [address] [place], [address], 10/03/2015 13:26:12 09/30/20 15 10/01/2015 urina lysis , compl ete nitrite Negati ve negati ve Not Available [facility] [address] [place], [address], 10/03/2015 13:26:12 09/30/20 15 10/01/2015 urina lysis , compl ete protein Negati ve negati ve Not Available [facility] [address] [employer], [address], 10/03/2015 13:26:12 09/30/20 15 10/01/2015 urina lysis , compl ete glucose 0 mg/dL 0-99 Not Available [facility] [address] [place], [place] [address]Jan[address] [place], [address], 10/03/2015 13:26:12 09/30/20 15 10/01/2015 urina lysis , compl ete ketone Negati ve negati ve Not Available [facility] [place], [address], 10/03/2015 13:26:12 09/30/20 15 10/01/2015 urina lysis , compl ete urobilinogen <2.0 mg/dL <2.0 Not Available [facility] [address] [place], [place] [address]Jan[address] [place], [address], 10/03/2015 13:26:12 09/30/20 15 10/01/2015 urina lysis , compl ete bilirubin Negati ve negati ve Not Available [facility] [address] [place], [place] [address]Janice M [employer] [place], [address], 10/03/2015 13:26:12 09/30/20 15 10/01/2015 urina lysis , compl ete hemoglobin Negati ve negati ve Not Available [facility] [address] [place], [place] [address]Janice M [employer] [place], [address], 10/03/2015 13:26:12 09/30/20 15 10/01/2015 urina lysis , compl ete WBC 0 per_h pf 0-4 Not Available [facility] [address] [place], [address], 10/03/2015 13:26:12 09/30/20 15 10/01/2015 urina lysis , compl ete RBC 0 per_h pf 0-4 Not Available [facility] [address] [place], [address], 10/03/2015 13:26:12 09/30/20 15 10/01/2015 urina lysis , compl ete amorphous crystals Presen t Not Available [facility] [address] [place], [address], 10/03/2015 13:26:12 09/30/20 15 10/02/2015 cultu re, urine source Clean catch Not Available [facility] [address] [place], [address], 10/03/2015 13:26:13 09/30/20 15 10/02/2015 cultu re, urine culture Steri le or less than 1000 col/m L. Not Available [facility] [address] [place] [address], [address], 10/03/2015 13:26:13 09/30/20 15 10/02/2015 cultu re, urine status FINAL 10/02 Not Available [facility] [address] [place], [address], 10/03/2015 13:26:13 09/30/20 15 10/03/2015 CT + NG DNA, PCR, unspe cifie d speci men source urine Not Available [facility] [address] [place], [address], 10/03/2015 13:26:14 09/30/20 15 10/03/2015 CT + NG DNA, PCR, unspe cifie d speci men chlamydia by DNA Negati ve negati ve Not Available [facility] [address] [employer], [place], [address], 10/03/2015 13:26:14 09/30/20 15 10/03/2015 CT + NG DNA, PCR, unspe cifie d speci men GC by DNA Negati ve negati ve Not FDA appro cami for GC/Ch lamyd ia in SureP ath, recta l and throa t speci mens. Test valid ated by CLP for detec ting GC/Ch lamyd ia from these [facility] es. Not Available [facility] [address] [employer], [place], [address], 10/03/2015 13:26:14 09/30/20 15 09/30/2015 bacte rial vagin osis + vagin itis panel , vagin al Results Positi ve Not Available In-Office Order Internal Use Only DO Not Attach Compendium DO Not Attach Compendium, Do Not Delete/merge, [id number] 09/30/2015 11:52:47 Result Notes None recorded. Problems Name Problem SNOMED Code Status Onset Date Resolution Date Notes Provider Name and Address Organization Details Recorded Time Hypothyroid ism 96766650 Completed 201106/20/2015 Damaris Bersadiame null, [facility] 5 14:33:51 Anemia 252182175 Completed 201106/20/2015 Damaris Bercume null, [facility] 5 14:33:51 Anxiety 49652974 Completed 06/20/2015 Damaris Bercume null, [facility] 5 14:33:51 Hypercholes terolemia 16737763 Completed 06/20/2015 Damaris Bercume null, [facility] 5 14:33:51 Migraine with aura 3752687 Completed 201406/20/2015 Damaris Bercume null, [facility] 5 14:33:51 Bradycardia 33481825 Completed 201206/20/2015 Damaris Shafer null, [facility] 5 14:33:51 Depressive disorder 25966097 Completed 201106/20/2015 Damaris Shafer [facility] 5 14:33:51 Infection by Trichomonas 99905065 Completed 06/20/2015 Damariscortez Shafer [facility] 5 14:33:51 Pure hypercholes terolemia 540896471 Completed 201106/20/2015 [facility] 14:[facility] Anxiety state 368705951 Completed 201106/20/2015 Damariscortez Shafer [facility] 5 14:33:51 Amenorrhea 29140938 Active Leigh Meyers [facility] 5 09:33:55 Vaginitis and vulvovagini tis Active Ana María Gomezteri [facility] 5 11:53:45 Urinary tract infectious disease 77596064 Active Ana María Gomezteri [facility] 5 11:53:45 Problem Notes None recorded. Procedures Surgical History Date Name Laterality Status Provider Name and Address Organization Details Recorded Time 5 Date of Last Pap Smear completed Jos Casillas [facility] 06/07/2015 12:20:28 Imaging Results None recorded. Procedure Notes None recorded. Medical Equipment None Reported. Allergies Allergen ID Allergen Name Allergen Category Reaction Reaction Severity Criticality Documentation Date Start Date Code Code System Note Provider Name and Address Organization Details Recorded Time 042436 acetamino phen medicatio n Not available Not available Not available 04/13/[address] [facility] 5 11:28:01 076068 oxycodone medicatio n Not available Not available Not available 04/13/2015 7804 RxNorm Damaris Shafer null, [facility] 5 13:24:00 280601 hydrocodo ne Not available Not available Not available Not available 04/13/2015 5489 RxNorm Damaris Shafer null, [facility] 5 13:24:00 092588 hydrocodo ne bitartrat e medicatio n Not available Not available Not available 04/19/20152012 99709 9 RxNorm COMME NT: CAUSA TIVE AGENT : VICOD IN; Not Available [facility] 5 09:47:23 151837 oxycodone hydrochlo ride medicatio n Not available Not available Not available 04/19/20152011 96096 RxNorm COMME NT: CAUSA TIVE AGENT : PERCO CET; Not Available [facility] 5 09:47:23 332222 acetamino phen medicatio n Not available Not available Not available 04/19/20152011 161 RxNorm COMME NT: CAUSA TIVE AGENT : PERCO CET; Not Available [facility] 5 09:47:23 Medications Name Sig Start Date [...] Address Organization Details Last Updated DateTime 04/29/2015 849201.353 54 g 100 mm[Hg] 60 mm[Hg] Ana María Binette [facility] 04/29/2015 13:19:46 Date Recorded Body weight Systolic blood pressure Diastolic blood pressure Provider Name and Address Organization Details Last Updated DateTime 09/30/2015 359710.837 47 g 114 mm[Hg] 68 mm[Hg] Ana María Gutierrez [facility] 09/30/2015 10:06:53 Date Recorded Body height Body mass index (BMI) Body weight Systolic blood pressure Diastolic blood pressure Provider Name and Address Organization Details Last Updated DateTime 04/15/2015 160.02 cm 42.9 kg/m2 606492.3 5354 g 110 mm[Hg] 74 mm[Hg] Jos Casillas [facility] 11:25:34 Social History Question Answer Notes LastModified by Organizat ion Details LastModified Time Tobacco Smoking Status Former Smoker Quit 2 months ago Jos Casillas [facility], [facility] 04/15/2015 11:29:00 How Much Tobacco Do [...] or Bladder Problems N Thyroid Problems N Benign breast disease N Colon cancer N GI Problems N Lung Disease N Depression N Defects or Inherited Disease N Eating Disorder N Anemia N Multiple Sclerosis N Anesthesia Complications N Headaches/Migraines N Psychiatric Illness N Ovarian Cancer N Diabetes N Anxiety Disorder N Blood Transfusions N Bladder disease N HSV N Arthritis N Infertility N Interstitial Cystitis N Abnormal [...] SNOMED-CT Code Diagnosis ICD10 Code Diagnosis Note [id number] JOHN CUEVAS DO [facility] [address] [place] [address] 04/15/2015 11:13:05 04/18/2015 09:17:09 Venereal disease screening 602898964 KIZZY done today for trichomona s. Reviewed safe sex practices. Infection by Trichomonas 41102999 see above Contracept ion care management 924378332 Patient counseled at time of annual regarding contracept ion options, wishes to restart DMPA. Risks vs benefits and side effects reviewed. Advised to supplement with calcium. One year erxd to pharmacy. Patient to call for injection with menses. [id number] [facility] [address] [place] [address] 11/12/2012 00:00:00 [id number] [facility] [address] [place] [address] 02/04/2013 00:00:00 [id number] [facility] [address] [place] [address] 05/05/2013 00:00:00 [id number] [facility] [address] [place] [address] 09/16/2013 00:00:00 [id number] [facility] [address] [place] [address] 03/10/2015 00:00:00 [id number] JOHN Ragsdale CUEVASDO [facility] [address] [place] [address] 04/29/2015 13:04:43 05/02/2015 13:18:01 Family planning surveillance [id number] ROSS BACON MD G[address] [place] [address] 06/24/2015 11:12:18 06/24/2015 11:16:52 [id number] SCOTT WEEMS MD [facility] [address] [place] [address] 09/30/2015 10:00:47 10/03/2015 09:27:28 Vaginitis and vulvovaginitis 371463704 N76.0 Urinary tr act infectious disease 35202248 N39.0 Health Concerns Section Related Observation LastModified by Organization Detai ls LastModified Time None Recorded Concern Status LastModified by Organization Details LastModified Time None Recorded Advance Directives Directive None Recorded Payers Insurance Date Sequence Insurance Name Policy Number Policy Melton Covered Member ID Melton Member ID Guarantor Name 09/27/2015 1 [employer]: [place] [employer] - [employer] WELF[employer] FUND - PERSONAL CHOICE (PPO) [id number] Rachel Roldan [id number] MOTHER Shirley Roldan OBGyn Episode No OBEpisode recorded.
--- OUTSIDE RECORDS SUMMARY | 2025-03-17 13:29 | XMS_ITS | Clinical Summary ---
Author Organization 175 [facility] Address [address] [place] [address] Phone Care Team Providers Care Staffing Rn Name Role Phone Darrin Nelson MD Primary Care Provider [phone] Allergies Active Allergy Reactions Criticality Noted Date Comments Aripiprazole 02/01/2017 Passed out and had a seizure Hydrocodone Unknown 09/16/2013 hydrocodone bitartrate Hydrocodone-Acetaminophen 02/01/2017 Passed out and had a seizure Methenamine Hives Low 09/16/2024 Oxycodone Unknown High 04/10/2012 oxycodone hydrochloride Oxycodone-Acetaminophen Other 02/01/2017 Passed out and had a seizure Tramadol 06/26/2024 Medications acetaminophen (TYLENOL) 500 mg tablet Take 1 tablet (500 mg total) by mouth every 6 (six) hours if needed. Active tamsulosin (FLOMAX) 0.4 mg 24 hr capsule Active senna-docusate (PERICOLACE) 8.6-50 mg per tablet Take 1 tablet by mouth 1 (one) time each day. 30 each 11 11/26/19 25 026 Active docusate sodium (COLACE) 100 mg capsule Take 1 capsule (100 mg total) by mouth. 06/05/20 24 Active multivitamin with minerals tablet Take 1 tablet by mouth 1 (one) time each day. Active cyclobenzaprine (FLEXERIL) 10 mg tablet Take 1 tablet (10 mg total) by mouth at bedtime as needed for muscle spasms. 30 tablet 02/27/20 25 025 Active diclofenac (Cataflam) 50 mg tablet Take 1 tablet (50 mg total) by mouth 2 (two) times a day for 10 days. 20 each 02/27/20 25 Active levothyroxine (SYNTHROID, LEVOTHROID) 137 mcg tablet Take 1 tablet (137 mcg total) by mouth 1 (one) time each day. 01/06/20 25 Active ibuprofen (ADVIL,MOTRIN) 800 mg tablet Take 1 tablet (800 mg total) by mouth 3 (three) times a day with meals. 04/07/20 24 Active HYDROmorphone (DILAUDID) 2 mg tablet Take 1 tablet (2 mg total) by mouth every 3 (three) hours if needed for severe pain. 06/05/20 24 Active bisacodyL (DULCOLAX) 10 mg suppository Insert 1 suppository (10 mg total) into the rectum 1 (one) time each day if needed. 06/05/20 24 Active cetirizine HCl (ZYRTEC ORAL) Take 1 tablet by mouth 1 (one) time each day. Active NIFEdipine, bulk, powder Place 1 Units around the anus 3 times daily for 56 days. Nifedipine 0.2% ointment. Apply a pea-size amount to the anal verge TID for 8 weeks. 08/13/20 24 025 Discontinued senna (SENOKOT) 8.6 mg tablet Take by mouth. 025 Discontinued cranberry fruit (cranberry) 450 mg tablet Take by mouth. 025 Discontinued lactobacillus acidoph-l.bulga r 100 million cell granules in packet Take 1 packet by mouth. 025 Discontinued Active Problems Problem Noted Date Diagnosed Date [...] Encounters Date Type Department Care Team Description 03/17/2025 8:15 AM EDT Office Visit Internal Medicine [address] [phone] Darrin Nelson MD Snoring (Primary Dx); DANIEL (obstructive sleep apnea); Rickie's disease 03/16/2025 3:00 PM EDT Office Visit Obstetrics and Gynecology [address] [address] Felipe Hammer CNM Female hirsutism (Primary Dx) 03/01/2025 2:30 PM EDT Office Visit Internal Medicine [address] [phone] Darrin Nelson MD Muscle spasm of back (Primary Dx) 02/26/2025 1:45 PM EDT Office Visit Walk-In Clinic - [address] [phone] Erica Calvo NP Acute pain of right shoulder (Primary Dx) 02/26/2025 Telephone Internal Medicine - [address] [phone] Darrin Nelson MD Shoulder Pain 02/19/2025 Telephone Internal Medicine [address] [phone] Darrin Nelson MD Sore Throat 01/04/2025 11:30 AM EST Office Visit General Surgery - [address] [place] [phone] Ed Yadav MD Anal fissure (Primary Dx) from Last 3 Months Immunizations Name Administration [...] Sexual Orientation Not on file Obstetrics History Para Term AB IAB SAB Ectopic Multiple Livin g Live Births 3 1 1 2 2 1 1 Date Outcome GA Total Labor Labor/2nd/3rd Weight Sex Type Anes PTL Agnes A1 A5 Name Clin SAB 017 SAB 5w0 d 018 Term 41w 0d 3090 g (109 oz) F CS-LT ranv Living Comments:NRFHTs, arres t of descent Last Filed Vital Signs Vital Sign Reading Time Taken Comments Blood Pressure 116/70 03/17/2025 8:21 AM EDT Pulse 64 03/17/2025 8:21 AM EDT Temperature 35.6 ??C (96 ??F) 03/17/2025 8:21 AM EDT Respiratory Rate - - Oxygen Saturation 98% 03/17/2025 8:21 AM EDT Inhaled Oxygen Concentration - - Weight 101 kg (222 lb 9.6 oz) 03/17/2025 8:21 AM EDT Height 157.5 cm (5' 2 ) 01/04/2025 11:41 AM EST Body Mass Index 40.71 01/04/2025 11:41 AM EST Plan of Treatment Upcoming Encounters Date Type Department Care Team (Late st Contact Info) Description 03/23/2025 11:00 AM EDT Evaluation [facility] [place] [address] [facility] [address] [place] [address] Sara Azar, PT 03/25/2025 11:15 AM EDT Appointment Ultrasound - [place] [address] [place] [address] Health Maintenance Due Date Last Done Comments Hepatitis B Vaccines (1 of 3 - 19+ 3-dose series) 2012 Pneumococcal Vaccine: Pediatrics (0 to 5 Years) and At-Risk Patients (6 to 64 Years) (1 of 2 - PCV) 2012 Depression Screening 10/20/2022 Social Influencers of Health Screening 10/20/2022 COVID-19 Vaccine ( - 2023-2 5 season) 2024 01/03/2022, 07/18/2021, [...] Procedure Name Priority Date/Time Associated Diagnosis Comments LIPID PANEL WITH REFLEX TO DIRECT LDL Routine 12/15/2024 10:10 AM EST Acute cystitis without hematuria Hives HEPATITIS C SCREENING Routine 02/28/2024 HIV SCREENING Routine 02/28/2024 HPV Routine 12/06/2023 from Last 3 Months or Most Recently Relevant to Health Maintenance Results * (ABNORMAL) Lipid panel with reflex to direct LDL (12/15/2024 10:10 AM EST) Cholesterol 187 0 - 200 mg/dL LAB CHEMISTRY METHOD 12/15/2024 1:20 PM EST [facility] Triglycerides 44 0 - 150 mg/dL LAB CHEMISTRY METHOD 12/15/2024 1:20 PM EST [facility] HDL 71 >=40 mg/dL LAB CHEMISTRY METHOD 12/15/2024 1:20 PM EST [facility] LDL Calculated 107(H) 0 - 100 mg/dL LAB CHEMISTRY METHOD 12/15/2024 1:20 PM EST [facility] VLDL Cholesterol Len 8.8 mg/dL LAB CHEMISTRY METHOD 12/15/2024 1:20 PM EST [facility] Non HDL Chol. (LDL+VLDL) 116 <145 mg/dL LAB CHEMISTRY METHOD 12/15/2024 1:20 PM EST [facility] Chol/HDL Ratio 2.6 0.0 - 4.4 LAB CHEMISTRY METHOD 12/15/2024 1:20 PM EST [facility] Blood Venous blood specimen / Unknown Venipuncture / Unknown 12/15/2024 10:10 AM EST 12/15/2024 10:10 AM EST us Darrin Nelson MD LAB BLOOD ORDERABLES Final Resul t [facility] [address] [place] [address], * HIV Screening (02/28/2024) HIV Screening abstracted Historical Provider HEALTH MAINTENANCE Final Result * Hepatitis C Screening (02/28/2024) Hepatitis C Screening abstracted Historical Provider HEALTH MAINTENANCE Final Result * Cervical Cancer Screening: HPV (12/06/2023) Pathologist [facility] Cervical Cancer Screening: HPV negative, abstracted Historical Provider HEALTH MAINTENANCE Final Result from Last 3 Months or Most Recently Relevant to Health Maintenance Insurance [facility] Care Teams Staffing Rn Relationship Specialty Start Date End Date Darrin Nelson MD [address] [facility] [address] [place] [address] PCP - General 05/27/24
--- OUTSIDE RECORDS SUMMARY | 2025-03-17 13:29 | XMS_ITS | Encounter Summary ---
Author Organization [facility] Address [address] [place] [address] Care Team Providers Care Health And Safety Inspector Name Role Phone Darrin [place] MD Primary Care Provider [phone] Reason for Referral * Imaging (Routine) - Pending Review Specialty Diagnoses / Procedures Referred By Contemmy t Referred To Contact Radiology Diagnoses Female hirsutism Procedures US Pelvis Non OB Complete Felipe Hammer CNM [address] [place] [address] Phone: tel: fax: [address] [address] Phone: tel: Referral ID Status Reason Start Date Expiration Date V isits Requested Visits Authorized [id number] Pending Review 03/16/2025 03/16/2026 1 1 Reason for Visit * Reason Comments Polycystic Ovary Syndrome Encounter Details Date Type Department Care Team ([facility] st Contact Info) Description 03/16/2025 3:00 PM EDT Office Visit Obstetrics and Gynecology - [address] [phone] Felipe Hammer CNM [address] [place] [phone] Female hirsutism (Primary Dx) Social History Tobacco Use Types [...] as of this encounter Progress Notes * Felipe Deniso, CARLINEM - 03/16/2025 3:00 PM EDT Subjective Patient ID: Shirley Roldan is a 29 y.o. female. Chief Complaint Patient presents with Polycystic Ovary Syndrome Subjective Shirley Roldan is a 29 y.o. female who presents for evaluation of a suspected diagnosis of PCOS. She first noted symptoms including abnormal uterine bleeding, acne, and hirsutism These symptoms have been unchanged since they were first noted. Currently her menstrual cycle occurs every 35+days. Maximum skips only about a month, has never gone 3 months without bleeding. OB History T1 L1 SAB2 IAB0 Ectopic0 Multiple0 Live Births1 Name of Baby 1: Not recorded Date: Not recorded GA: Not recorded Type: Not recorded Apgar1: Not recorded Apgar5: Not recorded Living: Not recorded Name of Baby 2: Not recorded Date: 02/06/17 GA: 5w0d Type: Not recorded Apgar1: Not recorded Apgar5: Not recorded Living: Not recorded Name of Baby 3: Not recorded Date: 12/11/17 GA: 41w0d Type: , Low Transverse Apgar1: Not recorded Apgar5: Not recorded Living: Living She has not had difficulty with infertility. She currently is not using hormonal contraception. Weight gain: Yes possible related to recent back surgery; she was at her highest almost 400 lbs andgot down to 190 lbs before her baby in 2018 by diet and exercise. Regular exercise: No, just got cleared from surgery Regular diet: Yes Hirsutism: Yes Balding/scalp hair loss: No Deepening of the voice: Lab Results Component Value Date TSH 41.29 (H) 12/15/2024 The following portions of the patient's chart were reviewed in this encounter and updated as appropriate: Tobacco Allergies Meds Problems Med Hx Surg Hx Fam Hx Review of Systems Constitutional: Obesity Respiratory: Negative. Gastrointestinal: Negative. Genitourinary: Positive for menstrual problem. Negative for pelvic pain. Musculoskeletal: Positive for back pain (recent surgery with [facility]). Skin: Facial hair Objective Physical Exam Constitutional: Appearance: Normal appearance. Pulmonary: Effort: Pulmonary effort is normal. Musculoskeletal: General: Normal range of motion. Neurological: General: No focal deficit present. Mental Status: She is oriented to person, place, and time. Skin: General: Skin is warm and dry. Psychiatric: Mood and Affect: Mood normal. Behavior: Behavior normal. Vitals reviewed. Assessment/Plan Female hirsutism (Primary) - Dehydroepiandrosterone Sulfate; Future - Estradiol; Future - Follicle stimulating hormone; Future - HCG, quantitative; Future - Hemoglobin A1c; Future - Insulin, total; Future - Lipid panel with reflex to direct LDL; Future - Prolactin; Future - US Pelvis Non OB Complete; Future - Testosterone free, bioavailable and total; Future In PCOS, the ovaries do not work normally and produce too much testosterone. Testosterone is calleda male hormone, but all people have some testosterone. Normally the ovaries produce very small amounts, but in PCOS, they make more. Symptoms can include: ?Having fewer than 8 periods a year ?Growing thick, dark hair on the upper lip, chin, sideburn area, chest, or belly ?Acne (oily skin and pimples on their face) ?Hair loss from the head ?Trouble getting without medical help ?Weight gain and obesity (although not everyone with PCOS has this problem) The most common treatment is to take control pills. But there are other treatments than can help with symptoms, too. ? control pills - This is the main treatment for PCOS. The pills don't cure the condition. Butthey can improve many of its symptoms, like irregular periods, acne, and facial hair. controlpills also lower your risk of cancer of the uterus. ?Anti-androgens - These medicines block hormones that cause some PCOS symptoms like acne and facialhair growth. Spironolactone (brand name: Aldactone) is the one that many doctors use. ?Progestin - This hormone can make your periods regular, but only if you take it regularly. It alsolowers the risk of cancer of the uterus. Most doctors use medroxyprogesterone (brand name: Provera)or natural progesterone (brand name: Prometrium). ?Metformin (brand name: Glucophage) - This medicine can help make your periods more regular. But itworks only in about half of the people who try it. In people with diabetes, this medicine helps to lower blood sugar levels. ?Medicated skin lotion or antibiotics to treat acne ?Laser therapy or electrolysis to remove extra hair If you are overweight or obese, losing weight can improve many of your symptoms. Call your doctor now or seek immediate medical care if: You have severe vaginal bleeding. You have new or worse belly or pelvic pain. Watch closely for changes in your health, and be sure to contact your doctor if: You do not get better as expected. You have unusual vaginal bleeding. She did not desire to start OCP's today and this is okay as she is having at least 9 menses a year Continue to follow with her Biology Intern Yomaira for her levothyroxine 137 mcg Follow up for annual well woman exam or PRN Felipe Hammer CNM documented in this encounter Plan of Treatment Upcoming Encounters Date Type Department Care Team (Late st Contact Info) Description 03/23/2025 11:00 AM EDT Evaluation [facility] [address] [phone] Sara Azar, PRASANNA 03/25/2025 11:15 AM EDT Appointment Ultrasound - [address] [phone] Scheduled Orders Name Type Priority Associated Diagnoses Order Schedule Dehydroepiandrosterone Sulfate Lab Routine Female hirsutism 1 Occurrences starting 03/16/2025 until 03/16/2026 Estradiol Lab Routine Female hirsutism 1 Occurrences starting 03/16/2025 until 03/16/2026 Follicle stimulating hormone Lab Routine Female hirsutism 1 Occurrences starting 03/16/2025 until 03/16/2026 HCG, quantitative Lab Routine Female hirsutism 1 Occurrences starting 03/16/2025 until 03/16/2026 Hemoglobin A1c Lab Routine Female hirsutism 1 Occurrences starting 03/16/2025 until 03/16/2026 Insulin, total Lab Routine Female hirsutism 1 Occurrences starting 03/16/2025 until 03/16/2026 Lipid panel with reflex to direct LDL Lab Routine Female hirsutism 1 Occurrences starting 03/16/2025 until 03/16/2026 Prolactin Lab Routine Female hirsutism 1 Occurrences starting 03/16/2025 until 03/16/2026 US Pelvis Non OB Complete Imaging Routine Female hirsutism Expected: 03/16/2025, Expires: 03/16/2026 Testosterone free, bioavaila ble and total Lab Routine Female hirsutism 1 Occurrences starting 03/16/2025 until 03/16/2026 documented as of this encounter Visit Diagnoses Diagnosis Female hirsutism- Primary Hirsutism documented in this encounter Discontinued Medications Medication Sig Discontinue Reason Start Date End Da te NIFEdipine, bulk, powder Place 1 Units around the anus 3 times daily for 56 days. Nifedipine 0.2% ointment. Apply a pea-size amount to the anal verge TID for 8 weeks. 08/13/2024 03/16/2025 senna (SENOKOT) 8.6 mg tablet Take by mouth. 03/16/2025 cranberry fruit (cranberry) 450 mg tablet Take by mouth. 03/16/2025 lactobacillus acidoph-l.bulgar 100 million cell granules in packet Take 1 packet by mouth. 03/16/2025 documented as of this encounter Historical Medications * This list may reflect changes made after this encounter. cetirizine HCl (ZYRTEC ORAL) Take 1 tablet by mouth 1 (one) time each day. bisacodyL (DULCOLAX) 10 mg suppository Insert 1 suppository (10 mg total) into the rectum 1 (one) time each day if needed. 06/05/2024 HYDROmorphone (DILAUDID) 2 mg tablet Take 1 tablet (2 mg total) by mouth every 3 (three) hours if needed for severe pain. 06/05/2024 ibuprofen (ADVIL,MOTRIN) 800 mg tablet Take 1 tablet (800 mg total) by mouth 3 (three) times a day with meals. 04/07/2024 levothyroxine (SYNTHROID, LEVOTHROID) 137 mcg tablet Take 1 tablet (137 mcg total) by mouth 1 (one) time each day. 01/06/2025 added in this encounter Care Teams Health And Safety Inspector Relationship Specialty Start Date End Date Darrin [place] MD [address] [place] [address] PCP - General 05/27/24 documented as of this encounter
[2025-03-17 13:59] LABS: Thyroid Stimulating Hormone 0.18 uIU/mL (0.32-4.0)
== END 2025-03-17 12:17 | disposition home or self-care (01) ==
LOC: HO.10HDL 12:16
PROVIDERS: Visit Provider Internal Medicine Endocrinology, Diabetes & Metabolism
DX: E66.9 Obesity, unspecified (principal); E03.9 Hypothyroidism, unspecified
CPT/HCPCS: 36415; 84439; 84443

== ENCOUNTER 2025-03-22 11:04 | Outpatient (AMB) | payer OTHER, SELFPAY ==
--- NOTE | 2025-03-22 11:17 | A.OFFVIS_ITS ---
VS Expanded 03/22/25 11:21 Height 5 ft 2 in Weight 225 lb 12.054 oz BMI 41.3 Intake Visit Reasons: Obesity Allergies acetaminophen [From Vicodin] Allergy (Mild, Verified 03/09/25 10:15) Seizure aripiprazole [From Abilify] Allergy (Mild, Verified 03/09/25 10:15) Fainting hydrocodone [From Vicodin] Allergy (Mild, Verified 03/09/25 10:15) Seizure methenamine Allergy (Mild, Verified 03/09/25 10:15) Hives oxycodone Allergy (Mild, Verified 03/09/25 10:15) Seizure Nutrition Presentation Details: Pt presents for MNT for Obesity. Pt reports keeping hydrated water, tea, low sugar beverages 6 -8 c/day tries to be mindful of fluid intake Reports working on meal planning, diet changes d/t celebrations denies diarrhea , has bowel every 2-3 days takes mvi Pt reports she was > 400 lbs > 5 yrs ago , reducing weight via diet modifications Physical activity : sedentary d/t to surgery r/t cauda equina syndrome BS Monitoring Most Recent Diabetes Results: No Data to Display [facility] Medical History (Updated 01/06/25 @ 14:57 by Major Clay MD) Hypothyroidism Obesity delivery delivered Surgical History H/O umbilical hernia repair History of lumbar laminectomy Family History Mother Thyroid ca Father Hyperthyroidism Cerebral palsy Skin cancer Social History Alcohol intake: current Alcohol intake frequency: a few times a month Assessment & Plan Assessment & Plan (1) Obesity: Code(s): E66.9 - Obesity, unspecified Category: Medical Plan: Wt: 102 Kg ( 02/02 ),03/2025 Est kcal needs as per MSJ: 2000 (40% carb, 30% protein/fat) Est fluid needs as per 25-30 ml/d: 3100 Est prot per day as per 1-1.2 g/kg bw: 122 Recommend fiber intake : 8-10 g per day and gradually increase to 25-28 g per day for women and 35-38 g for men or as tolerated Recommend sodium intake per day : less than 1500 mg less than 2000 mg Educated patient on: ( R = reviewed V = verbalizes understanding N/R = needs review N/A = not applicable * Food sources of carbohydrate, adequate serving sizes and its role in various health conditions: R * Differences between complex carbohydrates a simple carbohydrates, role of fiber in diet: R * Lean protein sources of foods: R * Differences between types of fats and role in diet (mono on saturated fat fatty acids, saturated fatty acids, trans fats): R * Food sources of sodium in salt and healthy modifications for heart health in kidney health: R V R/V * Vitamins and minerals: R V N/R * Healthy plate method concept: R * Physical activity: Benefits a precaution: R * Patient Instructions: Continue gradually working on reducing on total fat particularly saturated fats, trans fats (prefried food items, visible fats from animal protein, gravies , creams/sauces Continue working on increasing hydration 8-12 cups/day (remember vegetables/fruits provide hydration as well) Coding Level of Care Code Nutr Indiv Subseq (31779) Diagnoses Obesity E66.9 Time Spent (min) 30
[2025-03-22 11:21] VITALS: BMI 41.3
--- OUTSIDE RECORDS SUMMARY | 2025-03-22 11:50 | XMS_ITS | Encounter Summary ---
Author Organization [facility] Address [address] [place] [address] Care Team Providers Care Tiedown Operator Name Role Phone Darrin [place] MD Primary Care Provider [phone] Reason for Referral * Other Medical (Routine) - Closed Specialty Diagnoses / Procedures Referred By Contac t Referred To Contact Sleep Medicine Diagnoses DANIEL (obstructive sleep apnea) Snoring Procedures Home sleep test Darrin [place] MD [address] [place] [address] Phone: tel: fax: Sleep Medicine Services [address] [address] Phone: tel: fax: Referral ID Status Reason Start Date Expiration Date Visits Re quested Visits Authorized [id number] Closed 03/17/2025 03/17/2026 1 1 Reason for Visit * Reason Comments Follow-up Encounter Details Date Type Department Care Team ([facility] st Contact Info) Description 03/17/2025 8:15 AM EDT Office Visit Internal Medicine - [address] [phone] Darrin [place] MD [address] [place] [phone] Snoring (Primary Dx); DANIEL (obstructive sleep apnea); [...] the 03/17/25 encounter (Office Visit) with Darrin [place] MD Medication Sig Dispense Refill acetaminophen (TYLENOL) [...] Info) Description 03/23/2025 11:00 AM EDT Evaluation [facility] [address] [phone] Sara Azar, PT 03/25/2025 11:15 AM EDT Appointment Ultrasound - [address] [phone] Scheduled Orders Name Type Priority Associated Diagnoses Orde r Schedule Home sleep test Sleep Center Routine DANIEL (obstructive sleep apnea) Snoring 1 Occurrences starting 03/17/2025 until 03/17/2026 documented as of this encounter Visit Diagnoses Diagnosis Snoring- Primary Other dyspnea and respiratory abnormality DANIEL (obstructive sleep apnea) Obstructive sleep apnea (adult) (pediatric) Rickie's disease Chronic lymphocytic thyroiditis documented in this encounter Care Teams Tiedown Operator Relationship Specialty Start Date End Date Darrin [place] MD 175 [facility] [address] [place] [address] PCP - General 05/27/24 documented as of this encounter
--- OUTSIDE RECORDS SUMMARY | 2025-03-22 11:50 | XMS_ITS | Data Portability ---
Author Organization [facility]aternal [facility], _[facility] (Prof.) Address [address], [address] [place] [address] Assessment No assessment recorded. Plan of Treatment [...] SNOMED-CT Code Diagnosis ICD10 Code Diagnosis Note [id number] Evangelist Elder MD [address] [phone] 11/27/2017 14:25:52 11/27/2017 14:26:06 Health Concerns Section Related Observation LastModified by Organization Detai ls LastModified Time None Recorded Concern Status LastModified by Organization Details LastModified Time None Recorded Advance Directives Directive None Recorded Payers Encounter Date Sequence Insurance Name Policy Number Policy Melton Covered Member ID Melton Member ID Guarantor Name 11/27/2017 1 [facility] NET PLAN (MEDICAID HMO) [id number] Shirley Roldan [id number] Shirley Roldan OBGyn Episode No OBEpisode recorded.
--- OUTSIDE RECORDS SUMMARY | 2025-03-22 11:50 | XMS_ITS | Clinical Summary ---
Author Organization 175 [facility] Address [address] [place] [address] Phone Care Team Providers Care Die Equipment Operator Name Role Phone Darrin [place] MD Primary Care Provider [phone] Allergies Active Allergy Reactions Criticality Noted Date [...] 8:15 AM EDT Office Visit Internal Medicine [address] [phone] Darrin [place] MD Snoring (Primary Dx); DANIEL (obstructive sleep apnea); Rickie's disease 03/16/2025 3:00 PM EDT Office Visit Obstetrics and Gynecology [address] [phone] Felipe Hammer CNM Female hirsutism (Primary Dx) 03/01/2025 2:30 PM EDT Office Visit Internal Medicine [address] [phone] Darrin [place] MD Muscle spasm of back (Primary Dx) 02/26/2025 1:45 PM EDT Office Visit Walk-In Clinic - [address] [phone] Erica Calvo NP Acute pain of right shoulder (Primary Dx) 02/26/2025 Telephone Internal Medicine - [address] [phone] Darrin [place] MD Shoulder Pain 02/19/2025 Telephone Internal Medicine [address] [phone] Darrin [place] MD Sore Throat 01/04/2025 11:30 AM EST Office Visit General Surgery - [address] [place] [phone] Ed Yadav MD Anal fissure (Primary Dx) [...] Info) Description 03/23/2025 11:00 AM EDT Evaluation [facility] [address] [facility] [address] [place] [address] Sara Azar, PT 03/25/2025 11:15 AM EDT Appointment Ultrasound - [place] [address] [facility] [place] [address] Health Maintenance Due Date Last Done [...] LAB CHEMISTRY METHOD 12/15/2024 1:20 PM EST [facility] Triglycerides 44 0 - 150 mg/dL LAB CHEMISTRY METHOD 12/15/2024 1:20 PM EST [facility] HDL 71 >=40 mg/dL LAB CHEMISTRY METHOD 12/15/2024 1:20 PM EST [facility] LDL Calculated 107(H) 0 - 100 mg/dL LAB CHEMISTRY METHOD 12/15/2024 1:20 PM EST [facility] VLDL Cholesterol Len 8.8 mg/dL LAB CHEMISTRY METHOD 12/15/2024 1:20 PM EST [facility] Non HDL Chol. (LDL+VLDL) 116 <145 mg/dL LAB CHEMISTRY METHOD 12/15/2024 1:20 PM EST [facility] Chol/HDL Ratio 2.6 0.0 - 4.4 LAB CHEMISTRY METHOD 12/15/2024 1:20 PM EST [facility] Blood Venous blood specimen / Unknown Venipuncture / Unknown 12/15/2024 10:10 AM EST 12/15/2024 10:10 AM EST us Darrin Neslon MD LAB BLOOD ORDERABLES Final Resul t [facility] [address] [place] [address], * HIV Screening (02/28/2024) HIV Screening abstracted Historical Provider HEALTH MAINTENANCE Final Result * Hepatitis C Screening (02/28/2024) Hepatitis C Screening abstracted Historical Provider HEALTH MAINTENANCE Final Result * Cervical Cancer Screening: HPV (12/06/2023) Pathologist [facility] Cervical Cancer Screening: HPV negative, abstracted Historical Provider HEALTH MAINTENANCE Final Result from Last 3 Months or Most Recently Relevant to Health Maintenance Insurance [facility] Care Teams Die Equipment Operator Relationship Specialty Start Date End Date Darrin [place] MD [address] [facility] [address] [place] [address] PCP - General 05/27/24
--- OUTSIDE RECORDS SUMMARY | 2025-03-22 11:50 | XMS_ITS | Clinical Summary ---
Author Organization [employer] Address [address] [facility] [address] [place] [address] Care Team Providers Care Auto Motor Mechanic Name Role Phone Unavailable Primary Care Provider [...] patient's age to complete this topic Insurance [facility] MEDICAID STAND ADULT
== END 2025-03-22 11:42 | disposition home or self-care (01) ==
LOC: HO.ENCR 11:04
PROVIDERS: PCP Internal Medicine; Visit Provider Dietitian, Registered
DX: E66.9 Obesity, unspecified (principal)

== ENCOUNTER → 2025-03-22 11:04 | Outpatient (BNVA) | payer OTHER, SELFPAY | PROVIDERS: PCP Internal Medicine; Visit Provider Dietitian, Registered | DX: E66.9 Obesity, unspecified (principal); Z68.41 Body mass index [BMI] 40.0-44.9, adult | CPT/HCPCS: 97803 ==

== ENCOUNTER 2025-04-06 09:11 | Outpatient (AMB) | payer OTHER, SELFPAY ==
--- NOTE | 2025-04-06 07:12 | A.OFFVIS_ITS ---
Vital Signs 04/06/25 09:14 Height 5 ft 2 in Weight 218 lb 4.122 oz BMI 39.9 BP 120/82 Blood Pressure Location Rt brachial Position Sitting Pulse 83 Pulse Source Pulse Oximeter Pulse Oximetry (%) 96 Oxygen Delivery Method Room Air Intake Visit Reasons: obesity Intake Note: Patient presents today for a follow-up on Obesity: Steel Die Engraver Required: No Accompanied by: Self / Same As Patient Allergies acetaminophen [From Vicodin] Allergy (Mild, Verified 03/09/25 10:15) Seizure aripiprazole [From Abilify] Allergy (Mild, Verified 03/09/25 10:15) Fainting hydrocodone [From Vicodin] Allergy (Mild, Verified 03/09/25 10:15) Seizure methenamine Allergy (Mild, Verified 03/09/25 10:15) Hives oxycodone Allergy (Mild, Verified 03/09/25 10:15) Seizure HPI Comments Details: The patient is a 29-year-old female presenting for an evaluation of obesity. She was seen by Dr. Clay 01/06/25 and had been restarted on levothyroxine for hypothyroidism which she has been taking regularly on an empty stomach. 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 Her dose was reduced to 125 mcg several weeks ago due to a suppressed TSH. Most recent TSH is 0.18 on 03/17/25 Weight at initial consult: 227 weight today's visit 218 She is using an linnette on her phone at times, some days just trackin without the linnette and is following a 1700 calorie diet. She describes substantial weight gain several years prior. The patient has adhered to various diets, including the ketogenic diet, and consulted with a solar electric practitioner. Although she initially lost weight, she has been unable to progress further over the last year and a half. She was not approved for his up bound by her insurance which does not cover weight loss medications. Insurance had recommended the use of phentermine which we would not advise. She did obtain an unregulated GLP 1 through [employer] and purchased a 90 day supply of this. She has found that it has dramatically suppressed her appetite. She has some mild nausea 1st day of the injection which resolves with the in 24 hours. No other side effects. Secondary to her recent surgery she is limited in her exercise . She has recently increase the amount of exercise she is doing and walks 15-20 minutes on the treadmill at least a few days per week in his doing some light weight lifting with 5 lb dumbbells and doing some stretching/strengthening exercises reviewed by her physical therapist. For behavioral modification she is going through her work book which she purchased a year ago called [employer]. Review of Systems - Sleep: Reports occasional snoring There are lab orders for TSH free T4. She has been consistently taking her medication on an empty stomach and takes it daily with no other food or medication.. [facility] Medical History (Updated 01/06/25 @ 14:57 by Major Clay MD) Hypothyroidism Obesity delivery delivered Surgical History H/O umbilical hernia repair History of lumbar laminectomy Family History Mother Thyroid ca Father Hyperthyroidism Cerebral palsy Skin cancer Social History Alcohol intake: current Alcohol intake frequency: a few times a month Physical Exam Vital Signs: Last Vital Signs Pulse 83 04/06/25 09:14 BP 120/82 04/06/25 09:14 Pulse Ox 96 04/06/25 09:14 Oxygen Delivery Method Room Air 04/06/25 09:14 BMI result Body Mass Index 39.9 Const Other: Absence of Cushingoid features. Absence of acromegalic features. Neck exam reveals nl size thyroid about 15 gms. No thyroid nodules palpable. Heart S1 S2, Reg R/R. No M/R G. Skin exam reveals absence of vitiligo or acanthosis nigricans. Assessment & Plan Assessment & Plan (1) Obesity: Code(s): E66.9 - Obesity, unspecified Category: Medical Plan: 29-year-old obese female with hypothyroidism. She was not approved for Zepbound by her insurance company. She has opted to purchased the GLP 1 from [employer]. She was advised that this is an unregulated substance not approved by the FDA and I can not confirm that this is a safe choice or know what side effects could occur. I informed her that she could purchased Zepbound vial lara pay cost $399. I also counseled that should she develop abdominal pain that is this could be related to either pancreatitis or gallstones and that she should stop the medication and seek out medical care. She will continue to exercise within her limitations and start doing more the stretching exercises that were reviewed by PT for her back. Continue 1700 calorie diet. She will continue to work through the work book that she has entitled [employer]. (2) Hypothyroidism: Code(s): E03.9 - Hypothyroidism, unspecified Category: Medical Plan: She has reduced her dose to 125 mcg 3 weeks ago as prescribed. She will have blood work done in 2-3. Coding Level of Care Code Est Pt Level 3 (69901) Complex EM visit Add On G2211 Diagnoses Obesity E66.9 Hypothyroidism E03.9
[2025-04-06 09:14] VITALS: BP 120/82; PULSE 83; O2SAT 96; BMI 39.9
== END 2025-04-06 09:38 | disposition home or self-care (01) ==
LOC: HO.ENCR 09:12
PROVIDERS: PCP Internal Medicine; Visit Provider Nurse Practitioner Adult Health
DX: E66.9 Obesity, unspecified (principal); E03.9 Hypothyroidism, unspecified
CPT/HCPCS: 99213; G2211

== ENCOUNTER → 2025-04-06 09:11 | Outpatient (BNVA) | payer OTHER, SELFPAY | PROVIDERS: PCP Internal Medicine; Visit Provider Nurse Practitioner Adult Health | DX: E66.9 Obesity, unspecified (principal); E03.9 Hypothyroidism, unspecified; Z68.39 Body mass index [BMI] 39.0-39.9, adult | CPT/HCPCS: 99212 ==

== ENCOUNTER 2025-08-02 14:43 | Outpatient (REF) | payer OTHER, SELFPAY ==
[2025-08-02 16:06] LABS: Cholesterol 168 mg/dL (<200); HDL Cholesterol 59 mg/dL (>40); Triglycerides 59 mg/dL (<150)
[2025-08-02 16:18] LABS: Free T4 (Free Thyroxine) 1.39 ng/dL (0.71-1.85)
--- OUTSIDE RECORDS SUMMARY | 2025-08-02 17:19 | XMS_ITS | Clinical Summary ---
Author Organization [facility] Address [address] [place] [address] Care Team Providers Care Franchise Consultant Name Role Phone Unavailable Primary Care Provider Unavailabl e Source Comments Please note that some or all of the patient's information could have additional privacy protections. State laws allow health care providers to render certain
== END 2025-08-02 14:44 | disposition home or self-care (01) ==
LOC: HO.LAB 14:43
PROVIDERS: PCP Internal Medicine; Visit Provider Student in an Organized Health Care Education/Training Program
DX: E03.9 Hypothyroidism, unspecified (principal); E66.9 Obesity, unspecified
CPT/HCPCS: 36415; 80061; 84439; 84443

== ENCOUNTER 2025-08-03 08:05 | Outpatient (AMB) | payer OTHER, SELFPAY ==
--- NOTE | 2025-08-03 08:06 | MHC.OFFVIS ---
Vital Signs 08/03/25 08:08 Height 5 ft 2 in Weight 196 lb 3.382 oz BMI 35.9 BP 134/74 Blood Pressure Location Rt brachial Position Sitting Pulse 76 Pulse Source Pulse Oximeter Oxygen Delivery Method Room Air Intake Visit Reasons: Obesity Hypothyroidism Intake Note: Patient presents today to establish treatment for Obesity & Hypothyroidism: Last seen by Meghana Angel NP Sales Support Engineer Required: No Accompanied by: Self / Same As Patient Allergies acetaminophen (From Vicodin) Allergy (Mild, Verified 08/03/25 08:07) Seizure aripiprazole (From Abilify) Allergy (Mild, Verified 08/03/25 08:07) Fainting hydrocodone (From Vicodin) Allergy (Mild, Verified 08/03/25 08:07) Seizure methenamine Allergy (Mild, Verified 08/03/25 08:07) Hives oxycodone Allergy (Mild, Verified 08/03/25 08:07) Seizure Medication List - Last Reconciled 08/03/25 by Aylin Puentes MD docusate sodium 50 mg PO DAILY gabapentin 300 mg PO levothyroxine 125 mcg PO DAILY magnesium 200 mg PO DAILY sennosides-docusate sodium 8.6-50 mg (Senexon-S) 1 tab PO DAILY tirzepatide (weight loss) (Zepbound) 2.5 mg (0.5 mL) subcut QWEEK HPI Comments Details: The patient is a 29-year-old female presenting with hypothyroidism and obesity. This is the first time I see this patient myself. The patient has been managing hypothyroidism with levothyroxine, currently at a dose of 125 mcg, after previously being on 137 mcg. She reports taking the medication consistently every morning between 6:00 and 6:30 AM. She experiences occasional nausea, which she attributes to concurrent use of Zepbound. She also reports intermittent anxiety and occasional palpitations, which she associates with her anxiety disorder. She initially weighed 238 pounds before starting Zepbound and has since reduced her weight to approximately 192-193 pounds. The patient has been paying for Zepbound out of pocket due to insurance denial and is seeking assistance for coverage. The patient has a history of cauda equina syndrome, which contributes to her constipation and limits her physical activity. She engages in low-impact exercises such as treadmill, elliptical, and lightweight lifting, and follows a high-protein, low-calorie diet. Her diet includes protein shakes, eggs, chicken, turkey, and vegetables, with an emphasis on small portions and high fiber intake to manage constipation. She reports taking a bioting supplement for her hair loss. ROS: - Endocrine: Reports occasional nausea, denies diarrhea - Cardiovascular: Reports occasional palpitations, denies chest pain - Gastrointestinal: Reports constipation, denies diarrhea - Neurological: Reports anxiety, denies dizziness Physical exam: - Cardiovascular: Regular heart rate and rhythm, no murmurs - Respiratory: Clear to auscultation bilaterally - Thyroid: No significant enlargement or nodules palpated - Abdomen: non-tender, non-distended - Musculoskeletal: No edema in lower extremities Labs: [facility], [facility] Medical History Hypothyroidism Obesity delivery delivered Surgical History H/O umbilical hernia repair History of lumbar laminectomy Family History Mother Thyroid ca Father Hyperthyroidism Cerebral palsy Skin cancer Social History Alcohol intake: current Alcohol intake frequency: a few times a month Patient Tobacco Use Status: Never used Tobacco Physical Exam Vital Signs: Last Vital Signs Pulse 76 08/03/25 08:08 BP 134/74 08/03/25 08:08 Oxygen Delivery Method Room Air 08/03/25 08:08 BMI result Body Mass Index 35.9 Assessment & Plan Assessment & Plan (1) Hypothyroidism: Code(s): E03.9 - Hypothyroidism, unspecified Category: Medical (2) Obesity: Code(s): E66.9 - Obesity, unspecified Category: Medical Plan 1. Hypothyroidism - Continue current levothyroxine dose, reassess TSH levels after biotin cessation for accurate results. - Discussed with the patient the importance of accurate thyroid function testing and advised stopping biotin supplementation before retesting TSH levels. 2. Obesity - Discussed that OTC Zepbound for weight management is not something I would personally recommend - Precribed Zepbound in hopes that insurance approves it this time. - Reviewed the benefits of Zepbound for weight management and discussed its side effects briefly. Orders: Orders TSH reflex Free T4 08/02/25 E03.9 - Hypothyroidism, unspecified Lipid Panel 08/02/25 E66.9 - Obesity, unspecified FT4 by [facility] Dialysis 7 Days E03.9 - Hypothyroidism, unspecified, E66.9 - Obesity, unspecified Free T4 (Free Thyroxine) 08/02/25 E03.9 - Hypothyroidism, unspecified Thyroid Stimulating Hormone 7 Days E03.9 - Hypothyroidism, unspecified Medications: New tirzepatide (weight loss) (Zepbound) for 4 weeks 2.5 mg (0.5 mL) subcut QWEEK 2 mL 0RF Weight loss Patient Instructions: - Stop taking biotin for at least 7 days before retesting thyroid levels. - Continue current exercise and diet regimen. - Monitor for any changes in symptoms and report them during the next visit. - Follow up in six months or sooner if lab results indicate a need for medication adjustment. Coding Level of Care Code Est Pt Level 4 (96860) Diagnoses Hypothyroidism E03.9 Obesity E66.9 Time Spent (min) 45 Comment Time spent on review of records, labs, education, Assessment /Plan
[2025-08-03 08:08] VITALS: BP 134/74; PULSE 76; BMI 35.9
--- OUTSIDE RECORDS SUMMARY | 2025-08-03 08:50 | XMS_ITS | Clinical Summary ---
Author Organization [facility] Address [address] [place] [address] Phone Care Team Providers Care Flume Ride Operator Name Role Phone Darrin Nelson MD Primary Care Provider [phone] Allergies Active Allergy Reactions Criticality Noted Date [...] every 6 (six) hours if needed. Active docusate sodium (COLACE) 100 mg capsule Take 1 capsule (100 mg total) by mouth. 4 Active multivitamin with minerals tablet Take 1 tablet by mouth 1 (one) time each day. Active cyclobenzaprine (FLEXERIL) 10 mg tablet Take 1 tablet (10 mg total) by mouth at bedtime as needed for muscle spasms. 30 tablet 5 Active levothyroxine (SYNTHROID, LEVOTHROID) 137 mcg tablet Take 1 tablet (137 mcg total) by mouth 1 (one) time each day. 5 Active ibuprofen (ADVIL,MOTRIN) 800 mg tablet Take 1 tablet (800 mg total) by mouth 3 (three) times a day with meals. 4 Active bisacodyL (DULCOLAX) 10 mg suppository Insert 1 suppository (10 mg total) into the rectum 1 (one) time each day if needed. 4 Active cetirizine HCl (ZYRTEC ORAL) Take 1 tablet by mouth 1 (one) time each day. Active tirzepatide, weight loss, (Zepbound) 2.5 mg/0.5 mL injection Inject 0.5 mL (2.5 mg total) under the skin every 7 (seven) days. Active ondansetron (ZOFRAN) 4 mg tablet Take 1 tablet (4 mg total) by mouth every 8 (eight) hours if needed for nausea or vomiting. 60 tablet 3 5 Active lactulose (CHRONULAC) solution Take 30 mL at bedtime as needed constipation 900 mL 2 5 Active senna-docusate (PERICOLACE) 8.6-50 mg per tablet Take 1 tablet by mouth 1 (one) time each day. 30 each 5 04/01/20 26 Active Active Problems Problem Noted Date Diagnosed [...] Encounters Date Type Department Care Team Description 06/29/2025 11:13 AM EDT - 06/29/2025 11:59 PM EDT Hospital Encounter [facility] [address] [place] [address] Chronic right shoulder pain Discharge Disposition: Home or Self Care 06/28/2025 1:30 PM EDT Office Visit Internal Medicine - [place] [address] [facility] [address] [place] [address] María Elena Alcaraz PA Chronic right shoulder pain (Primary Dx) 06/04/2025 Telephone Internal Medicine - [place] [address] [facility] [address] [place] [address] Darrin Nelson MD from Last 3 Months Immunizations Name Administration [...] Sexual Orientation Not on file Obstetrics History * This document contains information received from the source organization and may not represent a complete record from that organization. Para Term AB IAB SAB Ectopic Multiple Livin g Live Births 3 1 1 1 1 Date Outcome GA Total Labor Labor/2nd/3rd Weight Sex Type Anes PTL Agnes A1 A5 Name Clin 017 018 Term 41w 0d 3090 g (109 oz) F CS-LT ranv Living Comments:NRFHTs, arres t of descent Last Filed Vital Signs Vital Sign Reading Time Taken Comments Blood Pressure 130/78 06/28/2025 1:53 PM EDT Pulse 54 03/25/2025 10:18 AM EDT Temperature 36.4 C (97.5 F) 06/28/2025 1:53 PM EDT Respiratory Rate - - Oxygen Saturation 98% 03/25/2025 10:18 AM EDT Inhaled Oxygen Concentration - - Weight 88.5 kg (195 lb) 06/28/2025 1:53 PM EDT Height 157.5 cm (5' 2 ) 01/04/2025 11:41 AM EST Body Mass Index 35.67 01/04/2025 11:41 AM EST Plan of Treatment Health Maintenance Due Date Last Done Comments Hepatitis B Vaccines (1 of 3 - 19+ 3-dose series) 2012 Pneumococcal Vaccine: Pediatrics (0 to 5 Years) and At-Risk Patients (6 to 49 Years) (1 of 2 - PCV) 2012 Social Influencers of Health Screening 10/20/2022 Depression Screening 11/11/2024 COVID-19 Vaccine (4 - 2024-2 6 season) 2025 01/03/2022, 07/18/2021, 06/21/2021 Influenza Vaccine (#1) 2025 , 08/28/2017 DTaP,Tdap,and Td Vaccines (2 - Td or Tdap) 11/06/2027 11/06/2017 Cervical Cancer Screening: HPV 12/06/2028 12/06/2023 Cholesterol Screening (Lipid Panel) 12/15/2029 12/15/2024 RSV Immunization Adult Patients (1 - 1-dose 75+ series) 2068 HIV Screening Completed 02/28/2024 Hepatitis C Screening [...] Procedure Name Priority Date/Time Associated Diagnosis Comments XR SHOULDER 2+ VIEWS RIGHT Routine 06/29/2025 11:31 AM EDT Chronic right shoulder pain LIPID PANEL WITH REFLEX TO DIRECT LDL Routine 12/15/2024 10:10 AM EST Acute cystitis without hematuria Hives HEPATITIS C SCREENING Routine 02/28/2024 HIV SCREENING Routine 02/28/2024 HPV Routine 12/06/2023 from Last 3 Months or Most Recently Relevant to Health Maintenance Results * XR Shoulder 2+ Views Right (06/29/2025 11:31 AM EDT) Anatomical Region Laterality Modality Upper Extremities, Shoulder Right Radi ographic Imaging 06/29/2025 10:2 9 PM EDT Impressions 06/29/2025 10:31 PM EDT Findings of calcific tendinopathy. POS - [id number] -------- FINAL REPORT -------- Dictated By: Jolanta Fontenot Dictated Date: 06/29/2025 22:29 ET Assigned Physician: Jolanta Fontenot Reviewed and Electronically Signed By: Jolanta Fontenot Signed Date: 06/29/2025 22:31 ET Workstation ID: [id number] Transcribed By: Self Edit Transcribed Date: 06/29/2025 22:29 ET Narrative 06/29/2025 10:31 PM EDT EXAM: Right shoulder x-ray HISTORY: Right shoulder pain. COMPARISON: None FINDINGS: 4 views performed. No appreciable degenerative changes at the acromioclavicular and glenohumeral joints. No acute fracture or dislocation detected. No destructive bone lesion. Small soft tissue calcification adjacent to the lateral humeral head from calcific tendinopathy. Procedure Note Jolanta Fontenot MD - 06/29/2025 EXAM: Right shoulder x-ray HISTORY: Right shoulder pain. COMPARISON: None FINDINGS: 4 views performed. No appreciable degenerative changes at the acromioclavicular andglenohumeral joints. No acute fracture or dislocation detected. Nodestructive bone lesion. Small soft tissue calcification adjacent to thelateral humeral head from calcific tendinopathy. IMPRESSION: Findings of calcific tendinopathy. POS - [id number] -------- FINAL REPORT -------- Dictated By: Jolanta Fontenot Dictated Date: 06/29/2025 22:29 ET Assigned Physician: Jolanta Fontenot Reviewed and Electronically Signed By: Jolanta Fontenot Signed Date: 06/29/2025 22:31 ET Workstation ID: [id number] Transcribed By: Self Edit Transcribed Date: 06/29/2025 22:29 ET María Elena FARLEY IMG XR PROCEDURES Final Result * (ABNORMAL) Lipid panel with reflex to direct LDL (12/15/2024 10:10 AM EST) Cholesterol 187 0 - 200 mg/dL LAB CHEMISTRY METHOD 12/15/2024 1:20 PM [facility] Triglycerides 44 0 - 150 mg/dL LAB CHEMISTRY METHOD 12/15/2024 1:20 PM [facility] HDL 71 >=40 mg/dL LAB CHEMISTRY METHOD 12/15/2024 1:20 PM [facility] LDL Calculated 107(H) 0 - 100 mg/dL LAB CHEMISTRY METHOD 12/15/2024 1:20 PM [facility] VLDL Cholesterol Len 8.8 mg/dL LAB CHEMISTRY METHOD 12/15/2024 1:20 PM [facility] Non HDL Chol. (LDL+VLDL) 116 <145 mg/dL LAB CHEMISTRY METHOD 12/15/2024 1:[address] [facility] Chol/HDL Ratio 2.6 0.0 - 4.4 LAB CHEMISTRY METHOD 12/15/2024 1:[address] [facility] Blood Venous blood specimen / Unknown Venipuncture / Unknown 12/15/2024 10:10 AM EST 12/15/2024 10:10 AM EST Darrin Nelson MD LAB BLOOD ORDERABLES Final Resul t [facility] [address] [place] [address], [place] [phone] * HIV Screening (02/28/2024) [facility] HIV Screening abstracted Historical Provider HEALTH MAINTENANCE Final Result * Hepatitis C Screening (02/28/2024) [facility] Hepatitis C Screening abstracted Historical Provider HEALTH MAINTENANCE Final Result * Cervical Cancer Screening: HPV (12/06/2023) [facility] Cervical Cancer Screening: HPV negative, abstracted Historical Provider HEALTH MAINTENANCE Final Result from Last 3 Months or Most Recently Relevant to Health Maintenance Insurance [facility] Care Teams Flume Ride Operator Relationship Specialty Start Date End Date Darrin Nelson MD [address] [place] [address] [address] [place] [address] PCP - General 05/27/24
--- OUTSIDE RECORDS SUMMARY | 2025-08-03 08:50 | XMS_ITS | Clinical Summary ---
Author Organization [facility] Address [address] [place] [address] Care Team Providers Care Soap Chipper Name Role Phone Unavailable Primary Care Provider [...] so, obtain the minor's consent prior to disclosure.[facility] Social History Tobacco Use Types Packs/Day Years Used Date Smoking Tobacco: Never Assessed Comments Unknown Sex and Gender Information Value Date Recorded Sex Assigned at Not on file Legal Sex Female 2:22 AM EST Gender Identity Not on file Sexual Orientation Not on file Plan of Treatment Not on file
--- OUTSIDE RECORDS SUMMARY | 2025-08-03 08:50 | XMS_ITS | Clinical Summary ---
Author Organization [facility] Address [address] [facility] [address] [place] [address] Care Team Providers Care Web Content & Social Media Manager Name Role Phone Unavailable Primary Care Provider [...] 1993 HIV Screening 1993 SDOH Screening 1993 Disability Screening 1993 Alcohol/Substance Use Screening 2005 Tobacco Screening 2005 Family Planning (PISQ) 2008 HPV Vaccines (1 - 3-dose series) 2008 Hepatitis C Screening 2011 Hepatitis B Vaccines (1 of 3 - 19+ 3-dose series) 2012 Pap Smear 2014 Cervical Cancer Screening 2023 HPV/Cotest 2023 COVID-19 Vaccine (4 - 2024-2 6 season) 2025 01/03/2022, 07/18/2021, 06/21/2021 Influenza Vaccine (#1) 2025 08/20/2019 DTaP/Tdap/Td Vaccines (2 - T d [...] Years) and At-Risk Patients (6 to 49) Years Aged Out No longer eligible b ased on patient's age to complete this topic RSV under 20 months Aged Out No longe r eligible based on patient's age to complete this topic Rotavirus Vaccines Aged Out No longer eligible based on patient's age to complete this topic Insurance [facility] MEDICAID STAND ADULT
== END 2025-08-03 08:42 | disposition home or self-care (01) ==
LOC: HO.ENCR 08:05
PROVIDERS: PCP Internal Medicine; Visit Provider Student in an Organized Health Care Education/Training Program
DX: E03.9 Hypothyroidism, unspecified (principal); E66.9 Obesity, unspecified
CPT/HCPCS: 99214

== ENCOUNTER → 2025-08-03 08:05 | Outpatient (BNVA) | payer OTHER, SELFPAY | PROVIDERS: PCP Internal Medicine; Visit Provider Student in an Organized Health Care Education/Training Program | DX: E03.9 Hypothyroidism, unspecified (principal); E66.9 Obesity, unspecified; Z68.35 Body mass index [BMI] 35.0-35.9, adult; Z79.899 Other long term (current) drug therapy | CPT/HCPCS: 99212 ==

== ENCOUNTER 2025-08-18 12:44 | Outpatient (REF) | payer OTHER, SELFPAY ==
[2025-08-18 14:29] LABS: Thyroid Stimulating Hormone 0.46 uIU/mL (0.32-4.0)
[2025-08-24 14:23] LABS: FT4 by Equilib. Dialysis 1.7 ng/dL (0.9-2.2)
== END 2025-08-18 12:45 | disposition home or self-care (01) ==
LOC: HO.10HDL 12:44
PROVIDERS: Visit Provider Student in an Organized Health Care Education/Training Program
DX: E03.9 Hypothyroidism, unspecified (principal); E66.9 Obesity, unspecified
CPT/HCPCS: 36415; 84439; 84443